=== PATIENT | female | born 1990 | race Caucasian/White ===

== ENCOUNTER 2023-06-22 12:36 | Outpatient (OUT) | payer OTHER, SELFPAY ==
[2023-06-22 13:25] LABS: Basophils Absolute Auto 0.1 10^3/uL (0.0-0.1); Basophils Percent Auto 0.8 % (0.2-2.0); Eosinophils Absolute Auto 0.1 10^3/uL (0.0-0.7); Eosinophils Percent Auto 1.7 % (0.9-7.0); Hematocrit 39.9 % (36.0-48.0); Hemoglobin 13.4 g/dL (12.0-16.0); Immature Granulocytes Abs Auto 0.02 10^3/uL (0.00-0.03); Immature Granulocytes Pct Auto 0.3 % (0.0-0.5); Lymphocytes Absolute Auto 1.8 10^3/uL (1.2-3.8); Lymphocytes Percent Auto 27.9 % (20.5-60.0); Mean Corpuscular HGB Conc 33.6 g/dL (29.9-35.2); Mean Corpuscular Hemoglobin 31.6 pg (26.7-34.0); Mean Corpuscular Volume 94.1 fL (81.0-99.0); Monocytes Absolute Auto 0.7 10^3/uL (0.3-0.8); Neutrophils Absolute Auto 3.9 10^3/uL (1.4-6.5); Neutrophils Percent Auto 59.3 % (43.0-75.0); Platelet Count 292 10^3/uL (150-450); Red Blood Count 4.24 10^6/uL (4.20-5.40); Red Cell Distribution Width 12.5 % (11.0-15.0); White Blood Count 6.6 10^3/uL (4.0-11.0)
[2023-06-22 13:49] LABS: Alanine Aminotransferase 20 U/L (14-59); Albumin Globulin Ratio 1.1; Albumin Level 4.4 g/dL (3.4-5.0); Alkaline Phosphatase 42 U/L (46-116); Anion Gap 13.7; Aspartate Amino Transferase 14 U/L (15-37); BUN Creatinine Ratio 12.2; Bilirubin Total 0.7 mg/dL (0.2-1.0); Calcium 9.5 mg/dL (8.5-10.1); Carbon Dioxide 27.5 mmol/L (21.0-32.0); Chloride 102 mmol/L (98-107); Chol HDL Ratio 2.1; Cholesterol 179 mg/dL (<=200); Estimated GFR (African America >60 (>=60); Estimated GFR (Non-African Ame >60 (>=60); Glucose 104 mg/dL (74-106); HDL Cholesterol 86 mg/dL (40-60); Potassium 4.2 mmol/L (3.5-5.1); Sodium 139 mmol/L (136-145); Total Protein 8.4 g/dL (6.4-8.2); Triglycerides 34 mg/dL (<=150); VLDL CHOLESTEROL 6.8 mg/dL
== END 2023-06-22 12:37 | disposition home or self-care (01) ==
PROVIDERS: PCP Internal Medicine; Visit Provider Internal Medicine
DX: Z00.00 Encounter for general adult medical examination without abnormal findings (principal)
CPT/HCPCS: 36415; 80053; 80061; 84443; 85025

== ENCOUNTER 2023-09-07 05:35 | Emergency (ER) | payer OTHER, SELFPAY ==
[2023-09-07 05:38] VITALS: BP 140/90; PULSE 60; RESP 18; TEMP 36.3; O2SAT 99
--- NOTE | 2023-09-07 05:58 | ED.GENADUL1 ---
HPI - General Adult General Chief complaint: Headache Stated complaint: HEADACHE Time Seen by Provider: 09/07/23 05:43 Source: patient Mode of arrival: walk-in Limitations: no limitations History of Present Illness HPI narrative: Patient with migraine history presents with frontal headache that began around 4am, woke patient from sleeping. She took her triptan but vomited immediately and notes no improvement. She said that the pain is typical of her prior migraines with respect to location and pain level. Associated symptoms include nausea, vomiting, photophobia. She is agitated and becomes increasingly so when asked questions. She has a neurologist through [facility] but could not recall their name. No recent injury to the head or neck. No URI symptoms, fever, rash or neck pain. Related Data Home Medications Medication Instructions Recorded Confirmed dextroamphetamine-amphetamine 10 09/07/23 mg tablet eletriptan 40 mg tablet mg 09/07/23 fluoxetine 10 mg tablet mg 09/07/23 Previous Rx's Medication Instructions Recorded ondansetron 4 mg disintegrating 4 mg PO Q6H PRN migraine or nausea 09/07/23 tablet #14 tabs Allergies Allergy/AdvReac Type Severity Reaction Status Date / Time No Known Drug Allergies Allergy Verified 09/07/23 05:43 PFSH PFS Social History Smoking status: Never smoker Exam Narrative Exam Narrative: Nurses notes and vital signs reviewed and patient is not hypoxic. afebrile General: uncomfortable and agitated. Skin: Warm, dry, no pallor noted. No rash. Head: Normocephalic, atraumatic. Neck: Supple, non-tender. no meningismus Eye: refused to open her eyes Cardiovascular: Regular Rate and Rhythm without murmur, gallop or rub. Respiratory: No accessory muscle use or respiratory distress. Lungs are clear to auscultation, no wheezing, rales or rhonchi Musculoskeletal: normal ROM Neurological: A&O x4. No cranial nerve dysfunction observed. No truncal ataxia. Moves all extremities. Sensation intact. Psychiatric: Cooperative and interactive. Normal mood and affect. Constitutional Vital Signs, click to edit/add: Last Vital Signs Temp 97.4 F L 09/07/23 05:38 Pulse 60 09/07/23 05:38 Resp 18 09/07/23 05:38 BP 140/90 09/07/23 05:38 Pulse Ox 99 09/07/23 05:38 O2 Del Method Room Air 09/07/23 05:38 Course Vital Signs Vital signs: Vital Signs Temperature 97.4 F L 09/07/23 05:38 Pulse Rate 60 09/07/23 05:38 Respiratory Rate 18 09/07/23 05:38 Blood Pressure 140/90 09/07/23 05:38 Pulse Oximetry 99 09/07/23 05:38 Oxygen Delivery Method Room Air 09/07/23 05:38 Temperature 97.4 F L 09/07/23 05:38 Pulse Rate 60 09/07/23 05:38 Respiratory Rate 18 09/07/23 05:38 Blood Pressure 140/90 09/07/23 05:38 Pulse Oximetry 99 09/07/23 05:38 Oxygen Delivery Method Room Air 09/07/23 05:38 Medical Decision Making MDM Narrative Medical decision making narrative: I ordered the emergency Department nurse to establish a peripheral IV access and give the patient a liter of normal saline IV fluid, IV Toradol, IV Zofran and IV Benadryl. On recheck at 635am she told me that her nausea had resolved and her headache had decreased from 8/10 to 3-4/10 and that she was feeling well enough to go home. Patient discharged home with prescription for ODT Zofran. Discharge Plan Discharge Chief Complaint: Headache Clinical Impression: Migraine Patient Disposition: Home, Self-Care Time of Disposition Decision: 06:40 Prescriptions / Home Meds: New ondansetron 4 mg tablet,disintegrating 4 mg PO Q6H PRN (Reason: migraine or nausea) Qty: 14 0RF No Action eletriptan 40 mg tablet dextroamphetamine-amphetamine 10 mg tablet fluoxetine 10 mg tablet Instructions: Migraine Headache (ED) Stand Alone Forms: Portal Instructions Referrals: Jordy Case DO [Primary Care Provider] - 1 week
[2023-09-07] MEDS: 0.9 % SODIUM CHLORIDE 1,000 ML 999 ML IV (06:28)
[2023-09-07] MEDS: DIPHENHYDRAMINE HCL 50 MG/ML (1ML) VIAL 25 MG IV (06:29)
[2023-09-07] MEDS: KETOROLAC TROMETHAMINE 30 MG/ML VIAL IVP (06:29)
[2023-09-07] MEDS: ONDANSETRON PF 4 MG/2 ML VIAL IV (06:29)
[2023-09-07 07:22] VITALS: BP 132/82; PULSE 86; RESP 18; O2SAT 98
== END 2023-09-07 07:42 | disposition home or self-care (01) ==
PROVIDERS: Emergency Provider Emergency Medicine; PCP Internal Medicine
DX: G43.909 Migraine, unspecified, not intractable, without status migrainosus (principal); Z79.899 Other long term (current) drug therapy
CPT/HCPCS: 96361; 96374; 96375; 99284

== ENCOUNTER 2024-01-14 04:38 | Emergency (ER) | payer OTHER, SELFPAY ==
[2024-01-14 04:42] VITALS: BP 138/98; PULSE 74; RESP 20; O2SAT 100
--- NOTE | 2024-01-14 04:45 | ED_ITS ---
HPI - Headache General Chief Complaint: Headache Stated Complaint: HEADACHE Time Seen by Provider: 01/14/24 04:41 History of Present Illness HPI Narrative: Patient with history of migraines presents with pain throughout the head that began a few hours ago. She also has associated nausea and vomiting, photophobia and small amount of loose stools - typical of her prior migraines. She said that she was visiting her boyfriend in [place] and was trying to drive to [place] but stopped at our ED to get treatment. She previously had improvement with toradol, zofran and benadryl when I saw her in August 2023. Related Data Home Medications Medication Instructions Recorded Confirmed dextroamphetamine-amphetamine 10 09/07/23 mg tablet eletriptan 40 mg tablet mg 09/07/23 fluoxetine 10 mg tablet mg 09/07/23 amoxicillin 500 mg capsule mg 01/14/24 Allergies Allergy/AdvReac Type Severity Reaction Status Date / Time No Known Drug Allergies Allergy Verified 09/07/23 05:43 PFSH PFS Social History Smoking status: Never smoker Exam Narrative Exam Narrative: Nurses notes and vital signs reviewed and patient is not hypoxic. afebrile General: uncomfortable. Skin: Warm, dry, no pallor noted. Head: Normocephalic, atraumatic. Neck: No meningismus Eye: Photophobia. Ears, Nose, Mouth, and Throat: Oral mucosa is moist Cardiovascular: Regular Rate and Rhythm without murmur, gallop or rub. Respiratory: No accessory muscle use or respiratory distress. Lungs are clear to auscultation, no wheezing, rales or rhonchi Neurological: A&O x4. No cranial nerve dysfunction observed. No truncal ataxia. Moves all extremities. Sensation intact. Psychiatric: Cooperative and interactive. Normal mood and affect. Constitutional Vital Signs, click to edit/add: Last Vital Signs Pulse 74 01/14/24 04:42 Resp 20 01/14/24 04:42 BP 138/98 H 01/14/24 04:42 Pulse Ox 100 01/14/24 04:42 Course Vital Signs Vital signs: Vital Signs Pulse Rate 74 01/14/24 04:42 Respiratory Rate 20 01/14/24 04:42 Blood Pressure 138/98 H 01/14/24 04:42 Pulse Oximetry 100 01/14/24 04:42 Pulse Rate 74 01/14/24 04:42 Respiratory Rate 20 01/14/24 04:42 Blood Pressure 138/98 H 01/14/24 04:42 Pulse Oximetry 100 01/14/24 04:42 MDM - Headache MDM Narrative Medical decision making narrative: Patient given IM Toradol, IM Benadryl and ODT Zofran. Discharged home with instructions to rest. Work note given Discharge Plan Discharge Stand Alone Forms: Portal Instructions Chief Complaint: Headache Clinical Impression: Migraine Patient Disposition: Home, Self-Care Time of Disposition Decision: 04:53 Prescriptions / Home Meds: No Action eletriptan 40 mg tablet dextroamphetamine-amphetamine 10 mg tablet fluoxetine 10 mg tablet amoxicillin 500 mg capsule Instructions: Migraine Headache (ED) Referrals: Jordy Case DO [Primary Care Provider] - 1 week
--- OUTSIDE RECORDS SUMMARY | 2024-01-14 04:45 | XMS_ITS | CCD ---
Author Name Unknown Address [address] [place] [address] Organization [facility] Care Team Providers Care Heel Nailing Machine Operator Name Role Phone DR JORDY GAMBLE Admitting Unavailable MANPREET, DR CONKLIN Attending Unavailable MANPREET, DR COKNLIN Primary Care Unavailable MANPREET, DR CONKLIN Consulting Unavailable Jordy Gamble Unavailable Amelia Lezama Unavailable JORDY GAMBLE Primary Care Unavailable ZENOBIA WHALEN Attending Unavailab DO Dylan Kelley Attending Provider CAT Murcia Primary Care Provider DO Jordy Gamble Attending Provider [phone] Miriam Mccarty Unavailable BALDOMERO Mccarty Attending Provider NON STAFF Primary Care Unavailable Miriam Mccarty Admitting Unavailable Miriam Mccarty Attending Unavailable Von Multani Admitting Unavailab Von Kelley Attending Unavailab July Roper Primary Care Unavailable Jordy Gamble Admitting Unavailable Jordy Gamble Attending Unavailable Jluy Murcia Primary Care Unavailable Allergies Allergy Classification Reported Allergen(s) Allergy Type Date of Onset Reaction(s) Facility (1 source) Unable to Assess Drug allergy (disorder) 02-28-2023 [facility] Repository Medications Current Medications Medication Drug Class(es) Dates Sig (Normalized) Sig (Original) amphetamine aspartate 2.5 mg / amphetamine sulfate 2.5 mg / dextroamphetamine saccharate 2.5 mg / dextroamphetamine sulfate 2.5 mg oral tablet (14 sources) Central Nervous System Stimulant Start: 08-03-2023 take 1 tablet by mouth every twelve hours Adderall 10 MG 1 tablet Orally Twice a day for 30 days Jul, Active Start: 06-15-2023 [facility] Adderall 7.5 MG 1 tablet Orally Twice a day for 30 days May, Active Start: 05-03-2023 take 1 capsule by [facility] every twenty-four hours Adderall XR 15 MG 1 capsule Orally Once a day for 30 days Apr, Active Start: 04-17-2023 take 1 capsule by mo [facility] every twenty-four hours Adderall XR 15 MG 1 capsule Orally Once a day for 30 days Mar, Active Start: 02-27-2023 take 1 capsule by mo [facility] every twenty-four hours Adderall XR 10 MG 1 capsule Orally Once a day for 30 days February, Active Start: 01-10-2023 take 1 capsule by [facility] every twenty-four hours Adderall XR 10 MG 1 capsule Orally Once a day Dec, Active Start: 12-11-2022 take 1 capsule by [facility] every twenty-four hours Adderall XR 10 MG 1 capsule in the morning Orally Once a day for 30 days Nov, Active FLUoxetine 10 mg oral tablet (3 sources) Serotonin Reuptake Inhibitor Start: 06-15-2023 take 1 tablet by mouth once in the morning FLUoxetine HCl 10 MG 1 tablet Orally q am for 30 days May, Active rizatriptan 10 mg oral tablet (10 sources) Serotonin-1b and Serotonin-1d Receptor Agonist Start: 02-20-2023 take 1 tablet by mouth every twenty-four hours Maxalt 10 MG 1 tablet Orally Once a day for 1 days Jan, Active Completed/Discontinued Medications Medication Drug Class(es) Dates Sig (Normalized) Sig (Original) ciprofloxacin 3 mg/ml ophthalmic solution (7 sources) Quinolone Antimicrobial Start: 3 Ciprofloxacin HCl 0.3 % 2 drops Ophthalmic In right eye every 2 hours while awake x 24 hours then qid for 7 days February, Not-Taking doxycycline hyclate 100 mg oral tablet (7 sources) Tetracycline-class Drug Start: 3 take 1 tablet by mouth every twenty-four hours Doxycycline Hyclate 100 MG 1 tablet Orally Once a day for 7 days February, Not-Taking escitalopram 10 mg oral tablet (11 sources) Serotonin Reuptake Inhibitor Start: 3 take 1 tablet by mouth every twenty-four hours Escitalopram Oxalate 10 MG 1 tablet Orally Once a day Nov, Not-Taking methylPREDNISolone 4 mg oral tablet (11 sources) Corticosteroid Start: 3 methylPREDNISolone 4 MG as directed Orally Once a day for 6 days Nov, Not-Taking Problems Problem Classification Problem Date Documented Date Episodic/Chronic Anxiety disorders (14 sources) Generalized anxiety disorder; Translations: [Generalized anxiety disorder] Chronic Attention-deficit, conduct, and disruptive behavior disorders (20 sources) Attention deficit hyperactivity disorder, predominantly inattentive type; Translations: [Attention-deficit hyperactivity disorder, predominantly inattentive type] Chronic Attention-deficit, conduct, and disruptive behavior disorders (5 sources) Attention-deficit hyperactivity disorder, predominantly inattentive type Chronic Diabetes or abnormal glucose tolerance complicating ; childbirth; or the puerperium (12 sources) History of gestational diabetes mellitus; Translations: [Personal history of gestational diabetes] Episodic Headache; including migraine (16 sources) Migraine with aura; Translations: [Migraine with aura, not intractable, without status migrainosus] Onset: 01-07-2023 Chronic Headache; including migraine (1 source) Headache; including migraine; Translations: [Headache, unspecified] Onset: 02-28-2023 Immunizations and screening for infectious disease (2 sources) Contact with and (suspected) exposure to infections with a predominantly sexual mode of transmission; Translations: [Contact with and (suspected) exposure to infections with a predominantly sexual mode of transmission] Onset: 09-14-2023 Episodic Inflammation; infection of eye (except that caused by tuberculosis or sexually transmitteddisease) (2 sources) Unspecified acute conjunctivitis, right eye Episodic Mood disorders (12 sources) Mild recurrent major depression; Translations: [Major depressive disorder, recurrent, mild] Chronic Nausea and vomiting (2 sources) Nausea with vomiting, unspecified; Translations: [Nausea with vomiting, unspecified] Onset: 01-07-2023 Episodic Other eye disorders (2 sources) Corneal disorder due to contact lens, bilateral Episodic Other upper respiratory infections (3 sources) Acute maxillary sinusitis, unspecified; Translations: [Acute pharyngitis, unspecified] Episodic Thyroid disorders (20 sources) Goiter; Translations: [Iodine-deficiency related diffuse (endemic) goiter] Onset: 03-07-2023 Chronic Viral infection (12 sources) Herpes simplex type 1 infection; Translations: [Herpesviral infection, unspecified] Episodic Results Test Name Value Interpretation Reference Range Facil ity Chlamydia/GC/Trich NAAon Chlamydia Trachomotis, ELINOR Negative Normal Negative [facility] Comment on above: Performed By: #### G CCHLAMTRI #### [facility] , Neisseria Gonorrhoeae, ELINOR Negative Normal Negative [facility] Comment on above: Performed By: #### G CCHLAMTRI #### [facility] , Trichomonas ELINOR Negative Normal Negative [facility] Comment on above: Result Comment: Perf ormed at: =G - [facility] [address] [place] [id number] Regional Coordinator: Yasmin Bartholomew MD, Phone: [phone] PERFORMED BY: [place] [address] PATHOLOGIST MANAGER OF INTERNAL ALVARADO CAT M.D. Performed By: #### G CCHLAMTRI #### [facility] , US thyroidon 03-07-2023 US thyroid [facility] [place] [address] Ultrasound Report Signed Patient: Ivone Nino MR#: [id number] : 1990 Acct:[id number] Age/Sex: 32 / F ADM Date: 03/07/23 Loc: Room: Type: [facility] Attending Dr: Jordy Gamble DO Ordering Provider: Jordy Gamble DO Date of Service: 03/07/23 US/US thyroid: Thyroid nodule Copies to: Jordy Gamble DO THYROID ULTRASOUND COMPARISON: None CLINICAL DATA: History of thyroid nodule. The right thyroid lobe measures 4.6 x 1.7 x 1.8 cm. The left lobe measures 4.0 x 1.1 x 1.6 cm. The isthmus measures 2 - 3 mm. There is normal echogenicity. At the superior pole on the right laterally, there is a tiny hypoechoic nodule measuring 3 x 2 x 3 mm. There is an additional superficial hypoechoic nodular area at the upper pole on that side measuring 5 x 3 x 5 mm. At the midpole on the right there is another hypoechoic nodular area that could be septated and possibly cystic measuring 4 x 3 x 3 mm. A second lateral hypoechoic nodular area is present the midpole measuring 5 x 3 x 4 mm. On the left, no discrete thyroid nodules were measured. US/US thyroid IMPRESSION: TINY RIGHT THYROID NODULES. THERE ARE NO PRIORS TO ASSESS STABILITY. Impression dictated by: Adrianna Chapman M.D.03/07/2023 4:54 PM Dictation Location[facility]: Karen Collier Transcribed By: VIN 03/07/231653 Dictated By: Adrianna Chapman MD 03/07/231650 Signed By: 03/07/231653 [facility] MR head/brain wo/w conon MR head/brain wo/w con [facility] [place] [address] MRI Report Signed Patient: Ivone Nino MR#: [id number] : 1990 Acct:[id number] Age/Sex: 32 / F ADM Date: 02/28/23 Loc: Room: Type: [facility] Attending Dr: Dylan Multani DO Copies to: Von Multani DO Ordering Provider: Von Multani DO Date of Service: 02/28/23 MR/MR head/brain wo/w con: R27.0, R51.9 MRI BRAIN WITHOUT AND WITH INTRAVENOUS CONTRAST CLINICAL DATA: Chronic worsening headaches and ataxia COMPARISON: None Multiecho, multiplanar imaging of the brain was performed before and after intravenous administration of 12 mL of ProHance. The ventricles are normal in size and position. There are no areas of abnormal signal intensity or enhancement within the supra or infratentorial brain. There is no restricted diffusion to suggest a recent ischemic event. No extra-axial collections or mass effect are seen. No midline abnormalities are noted. The imaged paranasal sinuses and mastoid are cells are clear. MR/MR head/brain wo/w con IMPRESSION: NO ACUTE INTRACRANIAL FINDINGS. Impression dictated by: Adrianna Chapman M.D.02/28/2023 5:09 PM Dictation Location: [place] [address] Transcribed By: [facility] 02/28/231708 Dictated By: Adrianna Chapman MD 02/28/231702 Signed By: 02/28/231708 Normal [facility] Quick Strepon 12-23-2022 S. pyogenes Org specific cx Ql (Throat) Negative Located Within [facility] [employer] Other Quick Strep Located Within [facility] [employer] Other CBC AUTO DIFFon 05-31-2022 BASO # 0.0 103/ul Normal 0.0-0.1 [facility] Comment on above: Performed By: #### C BC #### [facility] [address] [place] [address] Dr. Anthony Saldaña Basophils/100 WBC (Bld) 0.7 % Normal 0.2-2.0 [facility] Comment on above: Performed By: #### C BC #### [facility] [address] [place] [address] Dr. Anthony Saldaña EO # 0.2 103/ul Normal 0.0-0.7 [facility] Comment on above: Performed By: #### C BC #### [facility] [address] [place] [address] Dr. Anthony Saldaña Eosinophils/100 WBC (Bld) 2.8 % Normal 0.9-7.0 [facility] Comment on above: Performed By: #### C BC #### [facility] [address] [place] [address] Dr. Anthony Saldaña Erythrocyte distribution width (RBC) [Ratio] 12.2 % Normal 11.0-15.0 [facility] Comment on above: Performed By: #### C BC #### [facility] [address] [place] [address] Dr. Anthony Saldaña Hematocrit (Bld) [Volume fraction] 38.1 % Normal 36.0-48.0 [facility] Comment on above: Performed By: #### C BC #### [facility] [address] [place] [address] Dr. Anthony Saldaña Hemoglobin (Bld) [Mass/Vol] 12.9 g/dL Normal 12.0-16.0 [facility] Comment on above: Performed By: #### C BC #### [facility] [address] [place] [address] Dr. Anthony Saldaña IG # 0.02 10e3/ul Normal 0.00-0.03 [facility] Comment on above: Performed By: #### C BC #### [facility] [address] [place] [address] Dr. Anthony Saldaña IG % 0.4 % Normal 0.0-0.5 [facility] Comment on above: Performed By: #### C BC #### [facility] [address] [place] [address] Dr. Anthony Saldaña LYMPH # 2.1 103/ul Normal 1.2-3.8 [facility] Comment on above: Performed By: #### C BC #### [facility] [address] [place] [address] Dr. Anthony Saldaña Lymphocytes/100 WBC (Bld) 39.6 % Normal 20.5-60.0 [facility] Comment on above: Performed By: #### C BC #### [facility] [address] [place] [address] Dr. Anthony Saldaña MANUAL DIFF REQ NO Normal [facility] Comment on above: Performed By: #### C BC #### [facility] [address] [place] [address] Dr. Anthony Saldaña MCH (RBC) [Entitic mass] 31.6 pg Normal 26.7-34.0 [facility] Comment on above: Performed By: #### C BC #### [facility] [address] [place] [address] Dr. Anthony Saldaña MCHC (RBC) [Mass/Vol] 33.9 g/dL Normal 29.9-35.2 [facility] Comment on above: Performed By: #### C BC #### [facility] [address] [place] [address] Dr. Anthony Saldaña MCV (RBC) [Entitic vol] 93.4 fL Normal 81.0-99.0 [facility] Comment on above: Performed By: #### C BC #### [facility] [address] [place] [address] Dr. Anthony Saldaña MONO # 0.5 103/ul Normal 0.3-0.8 [facility] Comment on above: Performed By: #### C BC #### [facility] [address] [place] [address] Dr. Anthony Saldaña Monocytes/100 WBC (Bld) 9.5 % Normal 1.7-12.0 [facility] Comment on above: Performed By: #### C BC #### [facility] [address] [place] [address] Dr. Anthony Saldaña NEUT # 2.5 103/ul Normal 1.4-6.5 [facility] Comment on above: Performed By: #### C BC #### [facility] [address] [place] [address] Dr. Anthony Saldaña Neutrophils/100 WBC (Bld) 47.0 % Normal 43.0-75.0 [facility] Comment on above: Performed By: #### C BC #### [facility] [address] [place] [address] Dr. Anthony Saldaña Platelet mean volume (Bld) [Entitic vol] 8.6 fL Critically low 9.5-13.5 [facility] Comment on above: Performed By: #### C BC #### [facility] [address] [place] [address] Dr. Anthony Saldaña PLT 270 103/ul Normal 150-450 [facility] Comment on above: Performed By: #### C BC #### [facility] [address] [place] [address] Dr. Anthony Saldaña RBC 4.08 106/ul Critically low 4.20-5.40 [facility] Comment on above: Performed By: #### C BC #### [facility] [address] [place] [address] Dr. Anthony Saldaña WBC 5.4 103/ul Normal 4.0-11.0 [facility] Comment on above: Performed By: #### C BC #### [facility] [address] [address] [address] Anthony Saldaña PROF 14(COMP METB)on 022 Albumin [Mass/Vol] 4.3 g/dL Normal 3.4-5.0 [facility] Comment on above: Performed By: #### C MP, TSH #### [facility] [address] [address] [address] Anthony Saldaña Albumin/Globulin [Mass ratio] 1.2 {ratio} Normal [facility] Comment on above: Performed By: #### C MP, TSH #### [facility] [address] [place] [address] Dr. Anthony Saldaña ALP [Catalytic activity/Vol] 41 U/L Critically low 46-116 [facility] Comment on above: Performed By: #### C MP, TSH #### [facility] [address] [place] [address] Dr. Anthony Saldaña ALT [Catalytic activity/Vol] 17 U/L Normal 14-59 [facility] Comment on above: Performed By: #### C MP, TSH #### [facility] [address] [place] [address] Dr. Anthony Saldaña Anion gap [Moles/Vol] 11.7 mmol/L Normal [facility] Comment on above: Performed By: #### C MP, TSH #### [facility] [address] [place] [address] Dr. Anthony Saldaña AST [Catalytic activity/Vol] 15 U/L Normal 15-37 [facility] Comment on above: Performed By: #### C MP, TSH #### [facility] [address] [place] [address] Dr. Anthony Saldaña Bilirubin [Mass/Vol] 0.5 mg/dL Normal 0.2-1.0 [facility] Comment on above: Performed By: #### C MP, TSH #### [facility] [address] [place] [address] Dr. Anthony Saldaña Calcium [Mass/Vol] 9.2 mg/dL Normal 8.5-10.1 [facility] Comment on above: Performed By: #### C MP, TSH #### [facility] [address] [place] [address] Dr. Anthony Saldaña Chloride [Moles/Vol] 103 mmol/L Normal 98-107 [facility] Comment on above: Performed By: #### C MP, TSH #### [facility] [address] [place] [address] Dr. Anthony Saldaña CO2 [Moles/Vol] 28.5 mmol/L Normal 21.0-32.0 [facility] Comment on above: Performed By: #### C MP, TSH #### [facility] [address] [place] [address] Dr. Anthony Saldaña Creatinine [Mass/Vol] 0.81 mg/dL Normal 0.55-1.02 [facility] Comment on above: Performed By: #### C MP, TSH #### [facility] [address] [place] [address] Dr. Anthony Saldaña EGFR-AF BHUTANESE >60 Normal >=60 [facility] Comment on above: Performed By: #### C MP, TSH #### [facility] [address] [place] [address] Dr. Anthony Saldaña EGFR-NON AF BHUTANESE >60 Normal >=60 [facility] Comment on above: Performed By: #### C MP, TSH #### [facility] [address] [place] [address] Dr. Anthony Saldaña Globulin (S) [Mass/Vol] 3.7 g/dL Normal [facility] Comment on above: Performed By: #### C MP, TSH #### [facility] [address] [address] [address] Anthony Saldaña Glucose [Mass/Vol] 92 mg/dL Normal 74-106 [facility] Comment on above: Performed By: #### C MP, TSH #### [facility] [address] [place] [address] Dr. Anthony Saldaña Potassium [Moles/Vol] 4.2 mmol/L Normal 3.5-5.1 [facility] Comment on above: Performed By: #### C MP, TSH #### [facility] [address] [place] [address] Dr. Anthony Saldaña Protein [Mass/Vol] 8.0 g/dL Normal 6.4-8.2 [facility] Comment on above: Performed By: #### C MP, TSH #### [facility] [address] [place] [address] Dr. Anthony Saldaña Sodium [Moles/Vol] 139 mmol/L Normal 136-145 [facility] Comment on above: Performed By: #### C MP, TSH #### [facility] [address] [place] [address] Dr. Anthony Saldaña Urea nitrogen [Mass/Vol] 9.0 mg/dL Normal 7.0-18.0 [facility] Comment on above: Performed By: #### C MP, TSH #### [facility] [address] [place] [address] Dr. Anthony Saldaña Urea nitrogen/Creatinin e [Mass ratio] 11.1 mg/mg Normal [facility] Comment on above: Performed By: #### C MP, TSH #### [facility] [address] [place] [address] Dr. Anthony Saldaña TSHon 05-31-2022 TSH 2.103 uIU/mL Normal 0.358-3.740 [facility] Comment on above: Performed By: #### C MP, TSH #### [facility] [address] [place] [address] Dr. Anthony Saldaña Vital Signs Date Time Vital Sign Value Performing Clinician Facility 09-14-2023 15:15-0500 Body height 160.02 cm Miriam Mccarty Other [facility] Other 09-14-2023 15:15-0500 Body mass index (BMI) [Ratio] 25.9 kg/m2 Miriam Mccarty Other [facility] Other 09-14-2023 15:15-0500 Body temperature 98.1 [degF] Miriam Mccarty Other [facility] Other 09-14-2023 15:15-0500 Body weight 66.32 kg Miriam Mccarty Other [facility] Other 09-14-2023 15:15-0500 Diastolic blood pressure 89 mm[Hg] Miriam Mccarty Other [facility] Other 09-14-2023 15:15-0500 Respiratory rate 16 /min Miriam Mccarty Other [facility] Other 09-14-2023 15:15-0500 SaO2% (BldA) [Mass fraction] 99 % Miriam Lul Other [facility] Other 09-14-2023 15:15-0500 Systolic blood pressure 120 mm[Hg] Miriam Mccarty Other [facility] Other 03-01-2023 10:30-0400 Body height 160.02 cm Jordy Ball Other [facility] Other 03-01-2023 10:30-0400 Body mass index (BMI) [Ratio] 25.12 kg/m2 Jordy Ball Other [facility] Other 03-01-2023 10:30-0400 Body weight 64.32 kg Jordy Ball Other [facility] Other 03-01-2023 10:30-0400 Diastolic blood pressure 68 mm[Hg] Jordy Ball Other [facility] Other 03-01-2023 10:30-0400 Respiratory rate 12 /min Jordy Ball Other [facility] Other 03-01-2023 10:30-0400 Systolic blood pressure 100 mm[Hg] Jordy Ball Other [facility] Other 02-20-2023 16:00-0400 Body height 160.02 cm Jordy Ball Other [facility] Other 02-20-2023 16:00-0400 Body mass index (BMI) [Ratio] 24.62 kg/m2 Jordy Ball Other [facility] Other 02-20-2023 16:00-0400 Body weight 63.05 kg Jordy Ball Other [facility] Other 02-20-2023 16:00-0400 Diastolic blood pressure 76 mm[Hg] Jordy Ball Other [facility] Other 02-20-2023 16:00-0400 Respiratory rate 12 /min Jordy Ball Other [facility] Other 02-20-2023 16:00-0400 Systolic blood pressure 109 mm[Hg] Jordy Ball Other [facility] Other 12-23-2022 12:30-0500 Body height 160.02 cm Amelia Teja Other [facility] Other 12-23-2022 12:30-0500 Body mass index (BMI) [Ratio] 23.56 kg/m2 Amelia Teja Other [facility] Other 12-23-2022 12:30-0500 Body temperature 98.9 [degF] Amelia Teja Other [facility] Other 12-23-2022 12:30-0500 Body weight 60.33 kg Amelia Lezama Other [facility] Other 12-23-2022 12:30-0500 Respiratory rate 18 /min Amelia Lezama Other [facility] Other 12-23-2022 12:30-0500 SaO2% (BldA) [Mass fraction] 97 % Amelia Lezama Other [facility] Other Encounters Encounter Date Encounter Type Care Provider Facility Start: 09-14-2023 End: 09-14-2023 Departed Referred [employer] Miriam Mccarty Work Phone: [place] [facility] [place] Work Phone: Start: 09-14-2023 End: 09-14-2023 ambulatory NON STAFF [facility] Work Phone: Start: 09-14-2023 Office outpatient visit 15 minutes Miriam Mccarty [facility] Start: 08-03-2023 End: 08-03-2023 ambulatory Jordy Manpreet Other [email or web address] Other Start: 08-03-2023 Encounter for genera l adult medical examination without abnormal findings Jordy Manpreet [facility] Start: 08-03-2023 Telephone encounter Jordy Ball [facility] Start: 06-25-2023 End: 06-25-2023 ambulatory Jordy Ball Other [email or web address] Other Start: 06-25-2023 Telephone encounter Jordy Ball [facility] Start: 05-03-2023 End: 05-03-2023 ambulatory Jordy Ball Other [email or web address] Other Start: 05-03-2023 Telephone encounter Jordy Ball [facility] Start: 04-17-2023 End: 04-17-2023 ambulatory Jordy Ball Other [email or web address] Other Start: 04-17-2023 Telephone encounter [facility] Start: 03-08-2023 End: 03-08-2023 ambulatory Jordy Gamble Other [email or web address] Other Start: 03-08-2023 Telephone encounter [facility] Start: 03-07-2023 End: 03-07-2023 ambulatory Jordy Gamble Facility:[facility] Start: 03-07-2023 End: 03-07-2023 ambulatory RESPIRATORY PHYSICIAN-C July L Case Work Phone: [facility] Work Phone: Start: 03-07-2023 End: 03-07-2023 Patient encounter procedure RESPIRATORY PHYSICIAN-C July Case Work Phone: [facility] [place] Work Phone: Start: 03-01-2023 End: 03-01-2023 ambulatory Jordy Gamble Other [email or web address] Other Start: 03-01-2023 Office outpatient visit 15 minutes [facility] Start: 02-28-2023 End: 02-28-2023 ambulatory Von Multani Facility:[facility] Start: 02-28-2023 End: 02-28-2023 ambulatory RESPIRATORY PHYSICIAN-C July L Case Work Phone: [facility] Work Phone: Start: 02-28-2023 End: 02-28-2023 Patient encounter procedure RESPIRATORY PHYSICIAN-C July Case Work Phone: [facility] [place] Work Phone: Start: 02-27-2023 End: 02-27-2023 ambulatory Jordy Gamble Other [email or web address] Other Start: 02-27-2023 Telephone encounter [facility] Start: 02-20-2023 End: 02-20-2023 ambulatory Jordy Gamble Other [email or web address] Other Start: 02-20-2023 Office outpatient visit 15 minutes Jordy Gamble [facility] Start: 01-07-2023 End: 01-07-2023 Emergency department patient visit JORDY Vimal GAMBLE [facility] Start: 12-23-2022 End: 12-23-2022 ambulatory Amelia Teja Other [email or web address] Other Start: 12-23-2022 Office outpatient visit 25 minutes Amelia Lezama [facility] [place] Start: 12-11-2022 End: 12-11-2022 ambulatory Jordy Gamlbe Other [email or web address] Other Start: 12-11-2022 Office outpatient visit 15 minutes Jordy Gamble [facility] Start: 06-04-2022 Encounter for genera l adult medical examination without abnormal findings DR JORDY GAMBLE [facility] Start: 05-31-2022 End: 06-01-[address] JORDY GAMBLE Facility:[facility] Start: 05-31-2022 End: 06-01-2022 Encounter for general adult medical examination without abnormal findings DR JORDY GAMBLE Facility:[facility] Procedures Date Procedure Procedure Detail Performing Clinician Start: 03-07-2023 US scan of thyroid RESPIRATORY PHYSICIAN-C July Case Work Phone: Start: 02-28-2023 MRI of head RESPIRATORY PHYSICIAN-C Noemia ndra Case Work Phone: Plan of Treatment Date Care Activity Detail Author Start: 09-14-2023 [facility] Immunizations Immunization Date Immunization Notes Care Provider Fa [place] 08-10-2022 influenza virus vaccine, split virus (incl. purified surface antigen) Jordy Gamble Other [employer] Other 08-10-2021 influenza virus vaccine, split virus (incl. purified surface antigen) Jordy Gamble Other [employer] Other Payers Date Payer Category Payer Self-pay 1990 Unknown [id number] 1990 Unknown [id number] 1959 Unknown [id number] Unknown Regular Insurance [id number] Unknown [id number] [id number] [id number] Unknown [id number] Unknown [id number] [id number] Social History Date Type Detail Facility Sex Assigned At [email or web address] Other Start: 1990 Sex Assigned At Female [facility] Clinical Notes 12-11-2022 to 09-14-2023 Note Date & Type Note Facility 09-14-2023 Evaluation note Encounter Date Diagnosis Assessment Notes Aug, Exposure to sexually transmitted disease (STD) (ICD-10 - Z20.2) Discussed diagnosis and dipstick findings with patient. Will hold off on treatment at this time. Advised patient culture was sent today and we will call with her results in 2-5 days. We will test for gonorrhea, chlamydia, and trich off urine sample. Patient declines prophylactic treatment at this time. At time of results, treatment plan many change. Patient instructed to push fluids. Pain from sexual intercourse at this time. Patient symptoms should improve in the next 48 hours, if symptoms persist follow up with PCP or [facility]ographer [facility]. Immediate eval by ER if back or flank pain, fever, chills, N/V, or any other concerning symptoms arise. Patient verbalizes understanding and is agreeable to treatment plan [employer] Other 10-06-2023 Evaluation note* Encounter Date Diagnosis Assessment Notes Treatment Notes Treatment Clinical Notes Jul, Wellness examination (ICD-10 - Z00.00) [facility] Other 07-06-2023 Evaluation note* Encounter Date Diagnosis Assessment Notes Treatment Notes Treatment Clinical Notes Apr, Attention deficit hyperactivity disorder (ADHD), predominantly inattentive type (ICD-10 - F90.0) [employer] Other 06-20-2023 Evaluation note* Encounter Date Diagnosis Assessment Notes Treatment Notes Treatment Clinical Notes Mar, Attention deficit hyperactivity disorder (ADHD), predominantly inattentive type (ICD-10 - F90.0) [employer] Other 05-04-2023 Evaluation note* Encounter Date Diagnosis Assessment Notes Treatment Notes Treatment Clinical Notes February, Acute bacterial conjunctivitis of right eye (ICD-10 - H10.31) Warm compresses, artificial tears. Wash hands frequently February, Contact lens overwea r of both eyes (ICD-10 - H18.823) Wear glasses until infection clears [employer] Other 05-02-2023 Evaluation note* Encounter Date Diagnosis Assessment Notes Treatment Notes Treatment Clinical Notes February, Attention deficit hyperactivity disorder (ADHD), predominantly inattentive type (ICD-10 - F90.0) [employer] Other 04-25-2023 Evaluation note* Encounter Date Diagnosis Assessment Notes Treatment Notes Treatment Clinical Notes Jan, Thyroid nodule (ICD-10 - E04.1) < 10mm two years ago. Suggest repeating thyroid US to document stability Jan, Migraine with aura and without status migrainosus, not intractable (ICD-10 - G43.109) Handouts for migraine triggers given to patient Jan, Attention deficit hyperactivity disorder (ADHD), predominantly inattentive type (ICD-10 - F90.0) Stable, tolerating medication. Jan, SOURAV (generalized anxiety disorder) (ICD-10 - F41.1) Healthy diet, exercise, keep active [employer] Other 02-25-2023 Evaluation note* Encounter Date Diagnosis Assessment Notes Treatment Notes Treatment Clinical Notes Nov, Sore throat (ICD-10 - J02.9) Nov, Laryngitis (ICD-10 - J04.0) Take medication as directed. Use saline nasal spray may help with symptom relief. OTC medications such as Zyrtec, Alicia or Claritin can help with symptoms during the peak of allergy season. Follow up with primary care provider if symptoms persist as a therapy plan may need to be made. [employer] Other 02-13-2023 Evaluation note* Encounter Date Diagnosis Assessment Notes Treatment Notes Treatment Clinical Notes Nov, Acute non-recurrent maxillary sinusitis (ICD-10 - J01.00) Instructed to use Robitussin or Mucinex for cough, saline or Flonase NS for congestion, Tylenol for pain and fever. Nov, Migraine with aura and without status migrainosus, not intractable (ICD-10 - G43.109) Healthy diet, exercise and proper sleep routine Nov, Attention deficit hyperactivity disorder (ADHD), predominantly inattentive type (ICD-10 - F90.0) f/u Psych, restarted Adderall XL Nov, SOURAV (generalized anxiety disorder) (ICD-10 - F41.1) Helathy diet and exercise w/ proper sleep routine [employer] Other Evaluation noteNo assessment information available [facility] Work Phone: Evaluation noteNo InformationNort [employer] Other History general Narrative - Reported* Type Description Date Medical History SOURAV (generalized anxiety disorde r) Medical History Thyroid nodule Medical History Thyromegaly Medical History History of gestational diabetes Medical History Depression, major, recurrent, mi ld Medical History Herpes simplex type 1 infection Medical History ADD (attention deficit disorder) without hyperactivity Medical History Migraine with aura a nd without status migrainosus, not intractable Surgical History LASER SURGERY 2013 Hospitalization History SEE SURGICAL HX [facility] Other Summary Purpose Family History No Family History Records FoundNo Family History Records FoundNo Family History Records Found Advance Directives No Advanced Directives Records Found Advance Directive Response Recorded Date/ Time Advance Directives No February 20, 023 10:42am Advance Directive Response Recorded Date/ Time Advance Directives No February 20, 023 9:42am Chief Complaint and Reason for Visit Chief Complaint R27.0 R51.9 Chief Complaint R27.0 R51.9 nodule Additional Source Comments INFORMATION SOURCE (unrecogn ized section and content) DATE CREATED AUTHOR 06/04/2022 [facility] DATE CREATED AUTHOR AUTHOR'S ORGANIZ ATION 01/13/2023 [facility] DATE CREATED AUTHOR AUTHOR'S ORGANIZ ATION 09/25/2023 [facility] REASON FOR VISIT (unrecogniz ed section and content) [id number], ROSARIO ESTIONMigrainesRefillpink eye and swelled eyepink eye and swelled eyeU/S ResultsrefillRe-Send AdderallLab ResultsmedicationSTD TESTING Care Teams (unrecognized sec tion and content) Team Status: Active Member Role Status Dates July Murcia , RESPIRATORY PHYSICIAN-C Primary Care Provider Active Team Status: Inactive Member Role Status Dates Dylan Multani , Attending Provider Active July Murcia , RESPIRATORY PHYSICIAN-C Primary Care Provider Active Team Status: Inactive Member Role Status Dates July Murcia , RESPIRATORY PHYSICIAN-C Primary Care Provider Active Jordy Gamble DO Attending Provider Active Team Status: Inactive Member Role Status Dates Miriam Mccarty APRN Attending Provider Active Goals (unrecognized section and content) Goals may be documented in a n alternate section FOR RECORDS PERTAINING TO PATIENTS WHO ARE OR HAVE BEEN ENROLLED IN A CHEMICAL DEPENDENCY/SUBSTANCEABUSE PROGRAM, SOME INFORMATION MAY BE OMITTED. This clinical summary was aggregated from multiple sources. Caution should be exercised in using it in the provision of clinical care. This summary normalizes information from multiple sources, and as a consequence, information in this document may materially change the coding, format and clinical context of patient data. In addition, data may be omitted in some cases. CLINICAL DECISIONS SHOULD BE BASED ON THE PRIMARY CLINICAL RECORDS. [employer] provides no warranty or guarantee of the accuracy or completeness of information in this document.
[2024-01-14] MEDS: KETOROLAC TROMETHAMINE 60 MG/2 ML VIAL IM (04:57)
[2024-01-14] MEDS: DIPHENHYDRAMINE HCL 50 MG/ML (1ML) VIAL 25 MG IM (04:57)
[2024-01-14] MEDS: ONDANSETRON 4 MG RAPDIS TABLET SL (04:58)
== END 2024-01-14 05:52 | disposition home or self-care (01) ==
PROVIDERS: Emergency Provider Emergency Medicine; PCP Internal Medicine
DX: G43.909 Migraine, unspecified, not intractable, without status migrainosus (principal)
CPT/HCPCS: 96372; 99284

== ENCOUNTER 2024-06-20 10:04 | Outpatient (OUT) | payer OTHER, SELFPAY ==
[2024-06-20 10:26] LABS: Basophils Absolute Auto 0.1 10^3/uL (0.0-0.1); Basophils Percent Auto 0.9 % (0.2-2.0); Eosinophils Absolute Auto 0.1 10^3/uL (0.0-0.7); Eosinophils Percent Auto 2.4 % (0.9-7.0); Immature Granulocytes Abs Auto 0.02 10^3/uL (0.00-0.03); Immature Granulocytes Pct Auto 0.3 % (0.0-0.5); Lymphocytes Absolute Auto 1.7 10^3/uL (1.2-3.8); Lymphocytes Percent Auto 28.9 % (20.5-60.0); Mean Corpuscular HGB Conc 33.3 g/dL (29.9-35.2); Mean Corpuscular Hemoglobin 31.7 pg (26.7-34.0); Mean Corpuscular Volume 95.1 fL (81.0-99.0); Mean Platelet Volume 8.9 fL (9.5-13.5); Monocytes Absolute Auto 0.6 10^3/uL (0.3-0.8); Monocytes Percent Auto 9.5 % (1.7-12.0); Neutrophils Absolute Auto 3.3 10^3/uL (1.4-6.5); Platelet Count 289 10^3/uL (150-450); White Blood Count 5.8 10^3/uL (4.0-11.0)
--- OUTSIDE RECORDS SUMMARY | 2024-06-20 10:26 | XMS_ITS | CCD ---
Author Organization [facility] Care Team Providers Care Finishing Powder Press Operator Name Role Phone DR JORDY CASE Admitting Unavailable TYE, DR CONKLIN Attending Unavailable TYE, DR CONKLIN Primary Care Unavailable TYE, DR CONKLIN Consulting Unavailable Jordy Case Unavailable Amelia Lezama Unavailable JORDY CASE Primary Care Unavailable ZENOBIA WHALEN Attending Unavailab DO Dylan Kelley Attending Provider [phone] CAT Murcia Primary Care Provider DO Jordy Case Attending Provider Miriam Mccarty Unavailable BALDOMERO Mccarty Attending Provider [phone] NON STAFF Primary Care Unavailable Miriam Mccarty Admitting Unavailable Miriam Mccarty Attending Unavailable Von Multani Admitting Unavailab Von Kelley Attending Unavailab July Roper Primary Care Unavailable Jordy Case Admitting Unavailable Jordy Case Attending Unavailable July Murcia Primary Care Unavailable SHAW CORONA Attending Unavailable INEZ ALCOCER Referring Unavailable SHAW CORONA Attending Unavailable INEZ ALCOCER Referring Unavailable FARA FORD Attending Unavailable INEZ ALCOCER Referring Unavailable JNUITO BLANK Attending Unavailable INEZ ALCOCER Referring Unavailable SHAW CORONA Attending Unavailable INEZ ALCOCER Referring Unavailable SHAW CORONA Attending Unavailable INEZ ALCOCER Referring Unavailable Allergies Allergy Classification Reported Allergen(s) Allergy Type Date of Onset Reaction(s) Facility (1 source) Unable to Assess Drug allergy (disorder) 02-28-2023 [facility] Repository Medications Current Medications Medication Drug Class(es) [...] Active Start: 06-15-2023 take 1 tablet by [facility] every twelve hours Adderall 7.5 MG 1 tablet Orally Twice a day for 30 days May, Active Start: 05-03-2023 take 1 capsule by [facility] every twenty-four hours Adderall XR 15 MG 1 capsule Orally Once a day for 30 days Apr, Active Start: 04-17-2023 take 1 capsule by [facility] every twenty-four hours Adderall XR 15 MG 1 capsule Orally Once a day for 30 days Mar, Active Start: 02-27-2023 take 1 capsule by [facility] every twenty-four hours Adderall XR 10 MG 1 capsule Orally Once a day for 30 days February, Active Start: 01-10-2023 take 1 capsule by [facility] every twenty-four hours Adderall XR 10 MG 1 capsule Orally Once a day Dec, Active Start: 12-11-2022 take 1 capsule by [facility] every twenty-four hours Adderall XR 10 MG [...] ophthalmic solution (7 sources) Quinolone Antimicrobial Start: Ciprofloxacin HCl 0.3 % 2 drops Ophthalmic [...] NAAon Chlamydia Trachomotis, ELINOR Negative Normal Negative [facility] Comment on above: Performed By: #### G CCHLAMTRI #### [facility] , Neisseria Gonorrhoeae, ELINOR Negative Normal Negative [facility] Comment on above: Performed By: #### G CCHLAMTRI #### [facility] , Trichomonas ELINOR Negative Normal Negative [facility] Comment on above: Result Comment: Perf ormed at: =G - [facility] [address] [id number] Geological Aide: Yasmin Bartholomew MD, Phone: [phone] PERFORMED BY: [place] [address] PATHOLOGIST ACT ENGLISH TUTOR ALVARADO CAT M.D. Performed By: #### G CCHLAMTRI #### [facility] , US thyroidon 03-07-2023 US thyroid [facility] [place] [address] Ultrasound Report Signed Patient: Phyllis Ventura MR#: [id number] : 1990 Acct:[id number] Age/Sex: 32 / F ADM Date: 03/07/23 Loc: Room: Type: [facility] Attending Dr: Jordy Case DO Ordering Provider: Jordy Case DO Date of Service: 03/07/23 US/US thyroid: Thyroid nodule Copies to: Jordy Case DO THYROID ULTRASOUND COMPARISON: None CLINICAL DATA: [...] Adrianna Chapman M.D.03/07/2023 4:54 PM Dictation Location: [place] [address] Tech: Karen Amira Transcribed By: VIN 03/07/231653 Dictated By: Adrianna Chapman MD 03/07/231650 Signed By: 03/07/231653 [facility] MR head/brain wo/w chris MR head/brain wo/w con [facility] [place] [address] MRI Report Signed Patient: Phyllis Ventura MR#: [id number] : 1990 Acct:[id number] Age/Sex: 32 / F ADM Date: 02/28/23 Loc: Room: Type: [facility] Attending Dr: Dylan Multani DO Copies to: [...] Adrianna Chapman M.D.02/28/2023 5:09 PM Dictation Location: [place] [address] Transcribed By: [facility] 02/28/231708 Dictated By: Adrianna Chapman MD 02/28/231702 Signed By: 02/28/231708 Normal [facility] Quick Strepon 12-23-2022 S. pyogenes Org specific cx Ql (Throat) Negative [facility] Other Quick Strep [facility] Other CBC AUTO DIFFon 05-31-2022 BASO # 0.0 103/ul Normal 0.0-0.1 [facility] Comment on above: Performed By: #### C BC #### [facility] [address] [place] [address] Dr. Anthony Saldaña Basophils/100 WBC (Bld) 0.7 % Normal 0.2-2.0 [facility] Comment on above: Performed By: #### C BC #### [facility] [address] [place] [address] Dr. Anthony Saldaña EO # 0.2 103/ul Normal 0.0-0.7 [facility] Comment on above: Performed By: #### C BC #### [facility] [address] [place] [address] Dr. Anthony Saldaña Eosinophils/100 WBC (Bld) 2.8 % Normal 0.9-7.0 [facility] Comment on above: Performed By: #### C BC #### [facility] [address] [place] [address] Dr. Anthony Saldaña Erythrocyte distribution width (RBC) [Ratio] 12.2 % Normal 11.0-15.0 [facility] Comment on above: Performed By: #### C BC #### [facility] [address] [place] [address] Dr. Anthony Saldaña Hematocrit (Bld) [Volume fraction] 38.1 % Normal 36.0-48.0 [facility] Comment on above: Performed By: #### C BC #### [facility] [address] [place] [address] Dr. Anthony Saldaña Hemoglobin (Bld) [Mass/Vol] 12.9 g/dL Normal 12.0-16.0 [facility] Comment on above: Performed By: #### C BC #### [facility] [address] [place] [address] Dr. Anthony Saldaña IG # 0.02 10e3/ul Normal 0.00-0.03 [facility] Comment on above: Performed By: #### C BC #### [facility] [address] [place] [address] Dr. Anthony Saldaña IG % 0.4 % Normal 0.0-0.5 [facility] Comment on above: Performed By: #### C BC #### [facility] [address] [place] [address] Dr. Anthony Saldaña LYMPH # 2.1 103/ul Normal 1.2-3.8 [facility] Comment on above: Performed By: #### C BC #### [facility] [address] [place] [address] Dr. Anthony Saldaña Lymphocytes/100 WBC (Bld) 39.6 % Normal 20.5-60.0 [facility] Comment on above: Performed By: #### C BC #### [facility] [address] [place] [address] Dr. Anthony Saldaña MANUAL DIFF REQ NO Normal [facility] Comment on above: Performed By: #### C BC #### [facility] [address] [place] [address] Dr. Anthony Saldaña MCH (RBC) [Entitic mass] 31.6 pg Normal 26.7-34.0 [facility] Comment on above: Performed By: #### C BC #### [facility] [address] [place], [place] [id number] Dr. Anthony Saldaña MCHC (RBC) [Mass/Vol] 33.9 g/dL Normal 29.9-35.2 [facility] Comment on above: Performed By: #### C BC #### [facility] [address] [place] [address] Dr. Anthony Saldaña MCV (RBC) [Entitic vol] 93.4 fL Normal 81.0-99.0 [facility] Comment on above: Performed By: #### C BC #### [facility] [address] [place] [address] Dr. Anthony Saldaña MONO # 0.5 103/ul Normal 0.3-0.8 [facility] Comment on above: Performed By: #### C BC #### [facility] [address] [place] [address] Dr. Anthony Saldaña Monocytes/100 WBC (Bld) 9.5 % Normal 1.7-12.0 [facility] Comment on above: Performed By: #### C BC #### [facility] [address] [place] [address] Dr. Anthony Saldaña NEUT # 2.5 103/ul Normal 1.4-6.5 [facility] Comment on above: Performed By: #### C BC #### [facility] [address] [place] [address] Dr. Anthony Saldaña Neutrophils/100 WBC (Bld) 47.0 % Normal 43.0-75.0 [facility] Comment on above: Performed By: #### C BC #### [facility] [address] [place] [address] Dr. Anthony Saldaña Platelet mean volume (Bld) [Entitic vol] 8.6 fL Critically low 9.5-13.5 [facility] Comment on above: Performed By: #### C BC #### [facility] [address] [place] [address] Dr. Anthony Saldaña PLT 270 103/ul Normal 150-450 [facility] Comment on above: Performed By: #### C BC #### [facility] [address] [place] [address] Dr. Anthony Saldaña RBC 4.08 106/ul Critically low 4.20-5.40 [facility] Comment on above: Performed By: #### C BC #### [facility] [address] [place] [address] Dr. Anthony Saldaña WBC 5.4 103/ul Normal 4.0-11.0 [facility] Comment on above: Performed By: #### C BC #### [facility] [address] [place] [address] Dr. Anthony Saldaña PROF 14(COMP METB)on 022 Albumin [Mass/Vol] 4.3 g/dL Normal 3.4-5.0 [facility] Comment on above: Performed By: #### C MP, TSH #### [facility] [address] [place] [address] Dr. Anthony Saldaña Albumin/Globulin [Mass ratio] 1.2 {ratio} Normal [facility] Comment on above: Performed By: #### C MP, TSH #### [facility] [address] [place] [address] Dr. Anthony Saldaña ALP [Catalytic activity/Vol] 41 U/L Critically low 46-116 [facility] Comment on above: Performed By: #### C MP, TSH #### [facility] [address] [place] [address] Dr. Anthony Saldaña ALT [Catalytic activity/Vol] 17 U/L Normal 14-59 [facility] Comment on above: Performed By: #### C MP, TSH #### [facility] [address] [place] [address] Dr. Anthony Saldaña Anion gap [Moles/Vol] 11.7 mmol/L Normal [facility] Comment on above: Performed By: #### C MP, TSH #### [facility] [address] [place] [address] Dr. Anthony Saldaña AST [Catalytic activity/Vol] 15 U/L Normal 15-37 [facility] Comment on above: Performed By: #### C MP, TSH #### [facility] [address] [place] [address] Dr. Anthony Saldaña Bilirubin [Mass/Vol] 0.5 mg/dL Normal 0.2-1.0 [facility] Comment on above: Performed By: #### C MP, TSH #### [facility] [address] [place] [address] Dr. Anthony Saldaña Calcium [Mass/Vol] 9.2 mg/dL Normal 8.5-10.1 [facility] Comment on above: Performed By: #### C MP, TSH #### [facility] [address] [place] [address] Dr. Anthony Saldaña Chloride [Moles/Vol] 103 mmol/L Normal 98-107 [facility] Comment on above: Performed By: #### C MP, TSH #### [facility] [address] [place] [address] Dr. Anthony Saldaña CO2 [Moles/Vol] 28.5 mmol/L Normal 21.0-32.0 [facility] Comment on above: Performed By: #### C MP, TSH #### [facility] [address] [place] [address] Dr. Anthony Saldaña Creatinine [Mass/Vol] 0.81 mg/dL Normal 0.55-1.02 [facility] Comment on above: Performed By: #### C MP, TSH #### [facility] [address] [place] [address] Dr. Anthony Saldaña EGFR-AF NAURUAN >60 Normal >=60 [facility] Comment on above: Performed By: #### C MP, TSH #### [facility] [address] [place] [address] Dr. Anthony Saldaña EGFR-NON AF NAURUAN >60 Normal >=60 [facility] Comment on above: Performed By: #### C MP, TSH #### [facility] [address] [place] [address] Dr. Anthony Saldaña Globulin (S) [Mass/Vol] 3.7 g/dL Normal [facility] Comment on above: Performed By: #### C MP, TSH #### [facility] [address] [place] [address] Dr. Anthony Saldaña Glucose [Mass/Vol] 92 mg/dL Normal 74-106 [facility] Comment on above: Performed By: #### C MP, TSH #### [facility] [address] [place] [address] Dr. Anthony Saldaña Potassium [Moles/Vol] 4.2 mmol/L Normal 3.5-5.1 [facility] Comment on above: Performed By: #### C MP, TSH #### [facility] [address] [place] [address] Dr. Anthony Saldaña Protein [Mass/Vol] 8.0 g/dL Normal 6.4-8.2 [facility] Comment on above: Performed By: #### C GREGG, TSH #### [facility] [address] [place] [address] Dr. Anthony Saldaña Sodium [Moles/Vol] 139 mmol/L Normal 136-145 [facility] Comment on above: Performed By: #### C GREGG, TSH #### [facility] [address] [place] [address] Dr. Anthony Saldaña Urea nitrogen [Mass/Vol] 9.0 mg/dL Normal 7.0-18.0 [facility] Comment on above: Performed By: #### C GREGG, TSH #### [facility] [address] [place] [address] Dr. Anthony Saldaña Urea nitrogen/Creatinin e [Mass ratio] 11.1 mg/mg Normal [facility] Comment on above: Performed By: #### C GREGG, TSH #### [facility] [address] [place] [address] Dr. Anthony Saldaña TSHon 05-31-2022 TSH 2.103 uIU/mL Normal 0.358-3.740 [facility] Comment on above: Performed By: #### C MP, TSH #### [facility] [address] [place] [address] Dr. Anthony Saldaña Vital Signs Date Time Vital Sign Value Performing Clinician Facility 09-14-2023 15:15-0500 Body height 160.02 cm Miriam Mccarty Other [facility] Other 09-14-2023 15:15-0500 Body mass index (BMI) [Ratio] 25.9 kg/m2 Miriam Mccarty Other [facility] Other 09-14-2023 15:15-0500 Body temperature 98.1 [degF] Miriam Mccarty Other [facility] Other 09-14-2023 15:15-0500 Body weight 66.32 kg Miriam Mccarty Other [facility] Other 09-14-2023 15:15-0500 Diastolic blood pressure 89 mm[Hg] Miriam Mccarty Other [facility] Other 09-14-2023 15:15-0500 Respiratory rate 16 /min Miriam Mccarty Other [facility] Other 09-14-2023 15:15-0500 SaO2% (BldA) [Mass fraction] 99 % Miriam Lul Other [facility] Other 09-14-2023 15:15-0500 Systolic blood pressure 120 mm[Hg] Miriam Mccarty Other [facility] Other 03-01-2023 10:30-0400 Body height 160.02 cm Jordy Ball Other [facility] Other 03-01-2023 10:30-0400 Body mass index (BMI) [Ratio] 25.12 kg/m2 Jordy Ball Other [facility] Other 03-01-2023 10:30-0400 Body weight 64.32 kg Jordy Ball Other [facility] Other 03-01-2023 10:30-0400 Diastolic blood pressure 68 mm[Hg] Jordy Ball Other [facility] Other 03-01-2023 10:30-0400 Respiratory rate 12 /min Jordy Ball Other [facility] Other 03-01-2023 10:30-0400 Systolic blood pressure 100 mm[Hg] Jordy Ball Other [facility] Other 02-20-2023 16:00-0400 Body height 160.02 cm Jordy Ball Other [facility] Other 02-20-2023 16:00-0400 Body mass index (BMI) [Ratio] 24.62 kg/m2 Jordy Ball Other [facility] Other 02-20-2023 16:00-0400 Body weight 63.05 kg Jordy Ball Other [facility] Other 02-20-2023 16:00-0400 Diastolic blood pressure 76 mm[Hg] Jordy Ball Other [facility] Other 02-20-2023 16:00-0400 Respiratory rate 12 /min Jordy Ball Other [facility] Other 02-20-2023 16:00-0400 Systolic blood pressure 109 mm[Hg] Jordy Ball Other [facility] Other 12-23-2022 12:30-0500 Body height 160.02 cm Amelia Lezama Other [facility] Other 12-23-2022 12:30-0500 Body mass index (BMI) [Ratio] 23.56 kg/m2 Amelia Lezama Other [facility] Other 12-23-2022 12:30-0500 Body temperature 98.9 [degF] Amelia Lezama Other [facility] Other 12-23-2022 12:30-0500 Body weight 60.33 kg Amelia Lezama Other [facility] Other 12-23-2022 12:30-0500 Respiratory rate 18 /min Amelia Lezama Other [facility] Other 12-23-2022 12:30-0500 SaO2% (BldA) [Mass fraction] 97 % Amelia Lezama Other [facility] Other Encounters Encounter Date Encounter Type Care Provider Facility Start: 03-13-2024 End: 03-13-2024 ambulatory SHAW CORONA Not Available Start: 03-06-2024 End: 03-06-2024 ambulatory SHAW CORONA Not Available Start: 02-28-2024 End: 02-28-2024 ambulatory JUNITONICHO BLANK Not Available Start: 02-20-2024 End: 02-21-2024 ambulatory FARA LILIANA Not Available Start: 02-13-2024 End: 02-14-2024 ambulatory SHAW CORONA Not Available Start: 02-08-2024 End: 02-08-2024 ambulatory SHAW CORONA Not Available Start: 09-14-2023 End: 09-14-2023 Departed Referred MOTOR VEHICLE COMPLIANCE ANALYST Miriam Mccarty Work Phone: [facility] [place] Work Phone: Start: 09-14-2023 End: 09-14-2023 ambulatory NON STAFF [facility] Work Phone: Start: 09-14-2023 Office outpatient visit 15 minutes Miriam Mccarty [facility] [place] Start: 08-03-2023 End: 08-03-2023 ambulatory Jordy Case Other [facility] Other Start: 08-03-2023 Encounter for genera l adult medical examination without abnormal findings Jordy Case [facility] Start: 08-03-2023 Telephone encounter Jordy Case [facility] Start: 06-25-2023 End: 06-25-2023 ambulatory Jordy Case Other [facility] Other Start: 06-25-2023 Telephone encounter Jordy Csae [facility] Start: 05-03-2023 End: 05-03-2023 ambulatory Jordy Case Other [facility] Other Start: 05-03-2023 Telephone encounter Jordy Case [facility] Start: 04-17-2023 End: 04-17-2023 ambulatory Jordy Case Other [facility] Other Start: 04-17-2023 Telephone encounter Jordy Case [facility] Start: 03-08-2023 End: 03-08-2023 ambulatory Jordy Case Other [facility] Other Start: 03-08-2023 Telephone encounter Jordy Case [facility] Start: 03-07-2023 End: 03-07-2023 ambulatory Jordy Case Facility:[facility] Start: 03-07-2023 End: 03-07-2023 ambulatory V BELT FINISHER-C July L Case Work Phone: [facility] Work Phone: Start: 03-07-2023 End: 03-07-2023 Patient encounter procedure V BELT FINISHER-C July Case Work Phone: [facility] [place] Work Phone: Start: 03-01-2023 End: 03-01-2023 ambulatory Jordy Case Other [facility] Other Start: 03-01-2023 Office outpatient visit 15 minutes Jordy Case [facility] Start: 02-28-2023 End: 02-28-2023 ambulatory Von Multani Facility:[facility] Start: 02-28-2023 End: 02-28-2023 ambulatory V BELT FINISHER-Dominick Mcdowell L Case Work Phone: [facility] Work Phone: Start: 02-28-2023 End: 02-28-2023 Patient encounter procedure V BELT FINISHER-C July Case Work Phone: [facility] [place] Work Phone: Start: 02-27-2023 End: 02-27-2023 ambulatory Jordy Case Other [facility] Other Start: 02-27-2023 Telephone encounter Jordy Case [facility] Start: 02-20-2023 End: 02-20-2023 ambulatory Jordy Case Other [facility] Other Start: 02-20-2023 Office outpatient visit 15 minutes Jordy Case [facility] Start: 01-07-2023 End: 01-07-2023 Emergency department patient visit JORDY CASE [facility] Start: 12-23-2022 End: 12-23-2022 ambulatory Amelia Lezama Other [facility] Other Start: 12-23-2022 Office outpatient visit 25 minutes Amelia Lezama [facility] [place] Start: 12-11-2022 End: 12-11-2022 ambulatory Jordy Case Other [facility] Other Start: 12-11-2022 Office outpatient visit 15 minutes Jordy Case [facility] Start: 06-04-2022 Encounter for genera l adult medical examination without abnormal findings DR JORDY CASE [facility] Start: 05-31-2022 End: 06-01-[address] JORDY CASE Facility: Start: 05-31-2022 End: 06-01-2022 Encounter for general adult medical examination without abnormal findings DR JORDY CASE Facility:[facility] Procedures Date Procedure Procedure Detail Performing Clinician Start: 03-07-2023 US scan of thyroid V BELT FINISHER-C July Case Work Phone: Start: 02-28-2023 MRI of head V BELT FINISHER-C Eddie mercado Case Work Phone: Plan of Treatment Date Care Activity Detail Author Start: 09-14-2023 [facility] Immunizations Immunization Date Immunization Notes Care Provider Fa cili 08-10-2022 influenza virus vaccine, split virus (incl. purified surface antigen) Jordy Case Other [facility] Other 08-10-2021 influenza virus vaccine, split virus (incl. purified surface antigen) Jordy Case Other [facility] Other Payers Date Payer Category Payer Self-pay 1990 Unknown [id number] 2.16.84 [id number] 1990 Unknown [id number] 2.16. [id number] 1990 Unknown [id number] 2.16.84 [id number] 1990 Unknown [id number] 2.16.84 [id number] 1990 Unknown [id number] 2.16.84 [id number] 1990 Unknown [id number] 2.16.84 [id number] 1990 Unknown [id number] 2.16.84 [id number] 1990 Unknown [id number] 2.16.84 [id number] 1959 Unknown [id number] Unknown Regular Insurance [id number] Unknown [id number] 2.16.8 [id number] Unknown [id number] 2.16.8 [id number] Unknown [id number] 2.16.8 [id number] Social History Date Type Detail Facility Sex Assigned At [facility] Other Start: 1990 Sex Assigned At Female [facility] Clinical Notes 12-11-2022 to 09-14-2023 Note Date [...] symptoms persist follow up with PCP or Top Knitter. Immediate eval by ER if back or flank pain, fever, chills, N/V, or any other concerning symptoms arise. Patient verbalizes understanding and is agreeable to treatment plan [facility] Other 10-06-2023 Evaluation note* Encounter Date Diagnosis Assessment Notes Treatment Notes Treatment Clinical Notes Jul, Wellness examination (ICD-10 - Z00.00) [facility] Other 07-06-2023 Evaluation note* Encounter Date Diagnosis Assessment Notes Treatment Notes Treatment Clinical Notes Apr, Attention deficit hyperactivity disorder (ADHD), predominantly inattentive type (ICD-10 - F90.0) [facility] Other 06-20-2023 Evaluation note* Encounter Date Diagnosis Assessment Notes Treatment Notes Treatment Clinical Notes Mar, Attention deficit hyperactivity disorder (ADHD), predominantly inattentive type (ICD-10 - F90.0) [facility] Other 05-04-2023 Evaluation note* Encounter Date Diagnosis Assessment Notes Treatment Notes Treatment Clinical Notes February, Acute bacterial conjunctivitis of right eye (ICD-10 - H10.31) Warm compresses, artificial tears. Wash hands frequently February, Contact lens overwea r of both eyes (ICD-10 - H18.823) Wear glasses until infection clears [facility] Other 05-02-2023 Evaluation note* Encounter Date Diagnosis Assessment Notes Treatment Notes Treatment Clinical Notes February, Attention deficit hyperactivity disorder (ADHD), predominantly inattentive type (ICD-10 - F90.0) [facility] Other 04-25-2023 Evaluation note* Encounter Date Diagnosis [...] - F41.1) Healthy diet, exercise, keep active [facility] Other 02-25-2023 Evaluation note* Encounter Date Diagnosis [...] therapy plan may need to be made. [facility] Other 02-13-2023 Evaluation note* Encounter Date Diagnosis [...] diet and exercise w/ proper sleep routine [facility] Other Evaluation noteNo assessment information available [facility] Work Phone: Evaluation noteNo [facility] Other History general Narrative - Reported* Type [...] SURGERY 2013 Hospitalization History SEE SURGICAL HX [facility] Other Summary Purpose Family History No Family History Records FoundNo Family History Records FoundNo Family History Records FoundNo Family History Records Found Advance Directives No Advanced Directives Records Found Advance Directive Response Recorded Date/ Time Advance Directives No February 20 10:42am Advance Directive Response Recorded Date/ Time Advance Directives No February 20 9:42am Chief Complaint and Reason for Visit Chief Complaint R27.0 R51.9 Chief Complaint R27.0 R51.9 nodule Additional Source Comments INFORMATION SOURCE (unrecogn ized section and content) DATE CREATED AUTHOR 06/04/2022 Roxanna mcclain DATE CREATED AUTHOR AUTHOR'S ORGANIZ ATION 01/13/2023 [facility] DATE CREATED AUTHOR AUTHOR'S ORGANIZ ATION 09/25/2023 [facility] DATE CREATED AUTHOR AUTHOR'S ORGANIZ ATION 03/16/[address] [place] [address] [facility] EPIC REASON FOR VISIT (unrecogniz ed section and content) [id number] ANGEL ESTIONMigrainesRefillpink eye and swelled eyepink eye and swelled eyeU/S ResultsrefillRe-Send AdderallLab ResultsmedicationSTD TESTING Care Teams (unrecognized sec tion and content) Team Status: Active Member Role Status Dates uJly Campbell Case , V BELT FINISHER-C Primary Care Provider Active Team Status: Inactive Member Role Status Dates Dylan Multani DO Attending Provider Active July Campbell Case , V BELT FINISHER-C Primary Care Provider Active Team Status: Inactive Member Role Status Dates July Campbell Case , V BELT FINISHER-C Primary Care Provider Active Jordy Case DO Attending Provider Active Team Status: Inactive [...] BE BASED ON THE PRIMARY CLINICAL RECORDS. [facility]. provides no warranty or guarantee of the accuracy or completeness of information in this document.
[2024-06-20 12:31] LABS: Alanine Aminotransferase 25 U/L (14-59); Albumin Globulin Ratio 1.1; Albumin Level 4.2 g/dL (3.4-5.0); Alkaline Phosphatase 50 U/L (46-116); Anion Gap 9.5; Aspartate Amino Transferase 15 U/L (15-37); BUN Creatinine Ratio 12.9; Bilirubin Total 0.6 mg/dL (0.2-1.0); Calcium 9.5 mg/dL (8.5-10.1); Carbon Dioxide 30.2 mmol/L (21.0-32.0); Chloride 103 mmol/L (98-107); Chol HDL Ratio 2.2; Cholesterol 200 mg/dL (<=200); Estimated GFR (African America >60 (>=60); Estimated GFR (Non-African Ame >60 (>=60); Globulin 3.7 g/dL; Glucose 95 mg/dL (74-106); HDL Cholesterol 92 mg/dL (40-60); Potassium 4.7 mmol/L (3.5-5.1); Sodium 138 mmol/L (136-145); Thyroid Stimulating Hormone 2.658 uIU/mL (0.358-3.740); Total Protein 7.9 g/dL (6.4-8.2); Triglycerides 51 mg/dL (<=150); VLDL CHOLESTEROL 10.2 mg/dL
== END 2024-06-20 10:05 | disposition home or self-care (01) ==
LOC: LAB 10:05
PROVIDERS: PCP Internal Medicine; Visit Provider Internal Medicine
DX: Z00.00 Encounter for general adult medical examination without abnormal findings (principal)
CPT/HCPCS: 36415; 80053; 80061; 84443; 85025

== ENCOUNTER 2024-06-20 16:57 | Emergency (ER) | payer OTHER, SELFPAY ==
[2024-06-20 17:02] VITALS: BP 150/104; PULSE 64; TEMP 36.4; O2SAT 98; BMI 25.6
--- NOTE | 2024-06-20 17:08 | CT_ITS ---
The [address] [address] Patient Name: PHYLLIS VENTURA MRN: [id number] date: 1990 Sex: F Assigned Patient Location: ER Current Patient Location: ER Accession/Order Number: [id number] Exam Date: 06/20/2024 17:40 Report Date: 06/20/2024 18:09 At the request of: OSMAN JENKINS Procedure: CT head/brain wo con EXAM: CT head/brain wo con HISTORY: Headache COMPARISON: None. TECHNIQUE: Axial CT scans through the head were obtained without IV contrast administration. Dose reduction techniques were achieved by using: automated exposure control and/or adjustment of mA and /or kV according to patient size and/or use of iterative reconstruction technique. FINDINGS: There is no acute intracranial hemorrhage or abnormal extra-axial fluid collection. No mass effect or midline shift is seen. There is no evidence of large acute territorial infarction. There is no hydrocephalus. To the limit of CT, the posterior fossa appears unremarkable. The calvaria and extra cranial soft tissues are unremarkable. The visualized orbits show no abnormality. The visualized paranasal sinuses show no air-fluid level. Mastoid air cells are clear. CT/CT head/brain wo con IMPRESSION: Normal CT brain performed without contrast. Electronically authenticated by: MIMI MORENO Date: 06/20/2024 18:09
--- NOTE | 2024-06-20 17:09 | ED_ITS ---
<Statement entered by Jayla Kelly MD - 06/20/24 18:30> This documentation has been reviewed and approved. HPI HPI - General Adult General Chief complaint: Headache Stated complaint: HEADACHE Time Seen by Provider: 06/20/24 16:58 History of Present Illness HPI narrative: Patient is a 33-year-old female who presents to the emergency department for 2- hour history of global headache. She states she has had similar migraines in the past but typically her headaches are only in 1 spot and she feels this is more severe. No visual changes, peripheral paresthesias. She has had multiple episodes of vomiting. No falls or injuries. No recent illness, fevers or upper respiratory symptoms. She is not concerned for . She states she tried to take Relpax, she is known to local neurology, she states she took 1 pill but had no improvement and continued vomiting. She is moaning and uncooperative with exam initially. Related Data Home Medications ?Medication ?Instructions ?Recorded ?Confirmed dextroamphetamine-amphetamine 10 09/07/23 mg tablet eletriptan 40 mg tablet mg 09/07/23 fluoxetine 10 mg tablet mg 09/07/23 amoxicillin 500 mg capsule mg 01/14/24 Previous Rx's ?Medication ?Instructions ?Recorded ketorolac 10 mg tablet 10 mg PO TID PRN pain #10 tabs 06/20/24 ondansetron 4 mg disintegrating 4 mg PO Q6H PRN nausea and 06/20/24 tablet vomiting #12 tabs Allergies Allergy/AdvReac Type Severity Reaction Status Date / Time No Known Drug Allergies Allergy Verified 06/20/24 17:02 Opioid HPI Opioid Management Most Recent Opioid Data: Last Pain Scale 7 06/20/24 17:22 Last MAR Pain Assessment 06/20/24 17:22 Review of Systems ROS Constitutional Denies: fever or chills Eyes Denies: change in vision Ears, nose, mouth, and throat Denies: throat pain Cardiovascular Denies: chest pain Respiratory Denies: shortness of breath or cough Gastrointestinal Reports: nausea and vomiting Musculoskeletal Denies: back pain or neck pain Integumentary/Breast Denies: rash Neurological Reports: headache; Denies: numbness in extremities or weakness in extremities Hematologic/Lymphatic Denies: easy bruising or easy bleeding PFSH PFSH Social History Smoking status: Never smoker Exam Narrative Exam Narrative: Gen.: Moaning on exam cart, covering her face with a towel, rolling around in the bed Head: Normocephalic, atraumatic ENT: Moist mucous membranes, no meningismus or nuchal rigidity Respiratory: No respiratory distress, lungs clear bilaterally Cardio: Regular rate and rhythm Extremities: Moves extremities equally Psych: Normal mood and affect Neuro: No focal neuro deficit Skin: Warm, dry, intact Constitutional Vital Signs, click to edit/add: Last Vital Signs Temp 97.6 F 06/20/24 17:02 Pulse 64 06/20/24 17:02 Resp 16 06/20/24 17:02 BP 150/104 H 06/20/24 17:02 Pulse Ox 98 06/20/24 17:02 Course Vital Signs Vital signs: Vital Signs Temperature 97.6 F 06/20/24 17:02 Pulse Rate 64 06/20/24 17:02 Respiratory Rate 16 06/20/24 17:02 Blood Pressure 150/104 H 06/20/24 17:02 Pulse Oximetry 98 06/20/24 17:02 Temperature 97.6 F 06/20/24 17:02 Pulse Rate 64 06/20/24 17:02 Respiratory Rate 16 06/20/24 17:02 Blood Pressure 150/104 H 06/20/24 17:02 Pulse Oximetry 98 06/20/24 17:02 Medical Decision Making MDM Narrative Medical decision making narrative: Patient sent for head CT, this is unremarkable. She was medicated with IV fluids, Toradol, Reglan, Benadryl, Ativan. She is sleeping soundly on reevaluation and reports she is feeling well enough to go home, her is at bedside. She was given prescriptions of Toradol, Reglan for home. Follow-up with PCP and return to the ER if symptoms change or worsen SUPERVISED APC VISIT, PHYSICIAN ATTESTATION: Based on the medical record the care appears appropriate. ? Medical Records Medical records reviewed: Yes I reviewed the patient's medical records Imaging Data CT scan - head: Attestation: I have reviewed the pertinent imaging results. Radiologist's impression: ITS Impressions Head CT 06/20/24 17:08 IMPRESSION: Normal CT brain performed without contrast. Electronically authenticated by: MIMI MORENO Date: 06/20/2024 18:09 Discharge Plan Discharge Stand Alone Forms: Work/School Release, Portal Instructions Chief Complaint: Headache Clinical Impression: Headache Patient Disposition: Home, Self-Care Time of Disposition Decision: 18:26 Condition: Good Prescriptions / Home Meds: New ketorolac 10 mg tablet 10 mg PO TID PRN (Reason: pain) Qty: 10 0RF ondansetron 4 mg tablet,disintegrating 4 mg PO Q6H PRN (Reason: nausea and vomiting) Qty: 12 0RF No Action eletriptan 40 mg tablet dextroamphetamine-amphetamine 10 mg tablet fluoxetine 10 mg tablet amoxicillin 500 mg capsule Print Language: Hong Konger Instructions: Acute Headache (ED) Referrals: Jordy Case DO [Primary Care Provider] - 1 week
[2024-06-20] MEDS: DIPHENHYDRAMINE HCL 50 MG/ML VIAL 25 MG IV (17:21)
[2024-06-20] MEDS: 0.9 % SODIUM CHLORIDE 1,000 ML 999 ML IV (17:21)
[2024-06-20] MEDS: KETOROLAC TROMETHAMINE 30 MG/ML VIAL IVP (17:22)
[2024-06-20] MEDS: METOCLOPRAMIDE HCL 10 MG/2 ML VIAL IVP (17:22)
[2024-06-20] MEDS: LORAZEPAM 2 MG/ML VIAL 0.5 MG IV (17:23)
--- OUTSIDE RECORDS SUMMARY | 2024-06-20 17:30 | XMS_ITS | CCD ---
Author Organization [facility] Care Team Providers Care Tufter Name Role Phone DR JORDY CASE Admitting Unavailable TYE, DR CONKLIN Attending Unavailable TYE, DR CONKLIN Primary Care Unavailable TYE, DR CONKLIN Consulting Unavailable Jordy Case Unavailable Amelia Lezama Unavailable JORDY CASE Primary Care Unavailable ZEONBIA WHALEN Attending Unavailab DO Dylan Kelley Attending Provider CAT Murcia Primary Care Provider [phone] DO Jordy Case Attending Provider Miriam Mccarty Unavailable BALDOMERO Mccarty Attending Provider NON STAFF Primary Care Unavailable Miriam Mccarty Admitting Unavailable Miriam Mccarty Attending Unavailable Vno Multani Admitting Unavailab Von Kelley Attending Unavailab July Roper Primary Care Unavailable Jordy Case Admitting Unavailable Jordy Case Attending Unavailable July Murcia Primary Care Unavailable SHAW CORONA Attending Unavailable INEZ ALCOCER Referring Unavailable SHAW CORONA Attending Unavailable INEZ ALCOCER Referring Unavailable FARA FORD Attending Unavailable INEZ ALCOCER Referring Unavailable JUNITO BLANK Attending Unavailable INEZ ALCOCER Referring Unavailable SHAW CORONA Attending Unavailable INEZ ALCOCER Referring Unavailable SHAW CORONA Attending Unavailable INEZ ALCOCER Referring Unavailable Allergies Allergy Classification Reported Allergen(s) Allergy Type Date of Onset Reaction(s) Facility (1 source) Unable to Assess Drug allergy (disorder) 02-28-2023 [facility] Repository Medications Current Medications Medication Drug [...] Active Start: 06-15-2023 take 1 tablet by [facility] every twelve hours Adderall 7.5 MG 1 tablet Orally Twice a day for 30 days May, Active Start: 05-03-20[address] [facility] every twenty-four hours Adderall XR 15 MG 1 capsule Orally Once a day for 30 days Apr, Active Start: 04-17-[address] [facility] every twenty-four hours Adderall XR 15 MG 1 capsule Orally Once a day for 30 days Mar, Active Start: 02-27-[address] [facility] every twenty-four hours Adderall XR 10 MG 1 capsule Orally Once a day for 30 days February, Active Start: 01-10-[address] [facility] every twenty-four hours Adderall XR 10 MG 1 capsule Orally Once a day Dec, Active Start: 12-11-[address] [facility] every twenty-four hours Adderall XR 10 MG [...] NAAon Chlamydia Trachomotis, ELINOR Negative Normal Negative [facility] Comment on above: Performed By: #### G CCHLAMTRI #### [facility] , Neisseria Gonorrhoeae, ELINOR Negative Normal Negative [facility] Comment on above: Performed By: #### G CCHLAMTRI #### [facility] , Trichomonas ELINOR Negative Normal Negative [facility] Comment on above: Result Comment: Perf ormed at: =G - [facility] [address] [id number] City Director: Yasmin Bartholomew MD, Phone: [phone] PERFORMED BY: [place] [address] PATHOLOGIST LOOK OUT TOWER FIRE WATCHER ALVARADO CAT M.D. Performed By: #### G CCHLAMTRI #### [facility] , US thyroidon 03-07-2023 US thyroid [facility] [place] [address] Ultrasound Report Signed Patient: Phyllis Ventura MR#: [id number] : 1990 Acct:[id number] Age/Sex: 32 / F ADM Date: 03/07/23 Loc: Room: Type: [facility] Attending Dr: Jordy Case DO Ordering Provider: [...] Adrianna Chapman M.D.03/07/2023 4:54 PM Dictation Location: [place] [address] Tech: Karen Amira Transcribed By: VIN 03/07/231653 Dictated By: Adrianna Chapman MD 03/07/231650 Signed By: 03/07/231653 [facility] MR head/brain wo/w chris MR head/brain wo/w con [facility] [place] [address] MRI Report Signed Patient: Phyllis Ventura MR#: [id number] : 1990 Acct:[id number] Age/Sex: 32 / F ADM Date: 02/28/23 Loc: Room: Type: [facility] Attending Dr: Dylan Multani DO Copies to: [...] Adrianna Chapman M.D.02/28/2023 5:09 PM Dictation Location: [place] [address] Transcribed By: [facility] 02/28/231708 Dictated By: Adrianna Chapman MD 02/28/231702 Signed By: 02/28/231708 Normal [facility] Quick Strepon 12-23-2022 S. pyogenes Org specific cx Ql (Throat) Negative [facility] siOPTICA Other Quick Strep [facility] Other CBC AUTO DIFFon 05-31-2022 BASO # 0.0 103/ul Normal 0.0-0.1 [facility] Comment on above: Performed By: #### C BC #### [facility] [address] [place] [address] Dr. Anthony Saldaña Basophils/100 WBC (Bld) 0.7 % Normal 0.2-2.0 [facility] Comment on above: Performed By: #### C BC #### [facility] [address] [place] [address] Dr. Anthony Saldaña EO # 0.2 103/ul Normal 0.0-0.7 [facility] Comment on above: Performed By: #### C BC #### [facility] [address] [place] [address] Dr. Anthony Saldaña Eosinophils/100 WBC (Bld) 2.8 % Normal 0.9-7.0 [facility] Comment on above: Performed By: #### C BC #### [facility] [address] [place] [address] Dr. Anthony Saldaña Erythrocyte distribution width (RBC) [Ratio] 12.2 % Normal 11.0-15.0 [facility] Comment on above: Performed By: #### C BC #### [facility] [address] [place] [address] Dr. Anthony Saldaña Hematocrit (Bld) [Volume fraction] 38.1 % Normal 36.0-48.0 [facility] Comment on above: Performed By: #### C BC #### [facility] [address] [place] [address] Dr. Anthony Saldaña Hemoglobin (Bld) [Mass/Vol] 12.9 g/dL Normal 12.0-16.0 [facility] Comment on above: Performed By: #### C BC #### [facility] [address] [place] [address] Dr. Anthony Saldaña IG # 0.02 10e3/ul Normal 0.00-0.03 [facility] Comment on above: Performed By: #### C BC #### [facility] [address] [place] [address] Dr. Anthony Saldaña IG % 0.4 % Normal 0.0-0.5 [facility] Comment on above: Performed By: #### C BC #### [facility] [address] [place] [address] Dr. Anthony Saldaña LYMPH # 2.1 103/ul Normal 1.2-3.8 [facility] Comment on above: Performed By: #### C BC #### [facility] [address] [place] [address] Dr. Anthony Saldaña Lymphocytes/100 WBC (Bld) 39.6 % Normal 20.5-60.0 [facility] Comment on above: Performed By: #### C BC #### [facility] [address] [place] [address] Dr. Anthony Saldaña MANUAL DIFF REQ NO Normal [facility] Comment on above: Performed By: #### C BC #### [facility] [address] [place] [address] Dr. Anthony Saldaña MCH (RBC) [Entitic mass] 31.6 pg Normal 26.7-34.0 [facility] Comment on above: Performed By: #### C BC #### [facility] [address] [place], [place] [id number] Dr. Anthony Saldaña MCHC (RBC) [Mass/Vol] 33.9 g/dL Normal 29.9-35.2 [facility] Comment on above: Performed By: #### C BC #### [facility] [address] [place] [address] Dr. Anthony Saldaña MCV (RBC) [Entitic vol] 93.4 fL Normal 81.0-99.0 [facility] Comment on above: Performed By: #### C BC #### [facility] [address] [place] [address] Dr. Anthony Saldaña MONO # 0.5 103/ul Normal 0.3-0.8 [facility] Comment on above: Performed By: #### C BC #### [facility] [address] [place] [address] Dr. Anthony Saldaña Monocytes/100 WBC (Bld) 9.5 % Normal 1.7-12.0 [facility] Comment on above: Performed By: #### C BC #### [facility] [address] [place] [address] Dr. Anthony Saldaña NEUT # 2.5 103/ul Normal 1.4-6.5 [facility] Comment on above: Performed By: #### C BC #### [facility] [address] [place] [address] Dr. Anthony Saldaña Neutrophils/100 WBC (Bld) 47.0 % Normal 43.0-75.0 [facility] Comment on above: Performed By: #### C BC #### [facility] [address] [place] [address] Dr. Anthony Saldaña Platelet mean volume (Bld) [Entitic vol] 8.6 fL Critically low 9.5-13.5 [facility] Comment on above: Performed By: #### C BC #### [facility] [address] [place] [address] Dr. Anthony Saldaña PLT 270 103/ul Normal 150-450 [facility] Comment on above: Performed By: #### C BC #### [facility] [address] [place] [address] Dr. Anthony Saldaña RBC 4.08 106/ul Critically low 4.20-5.40 [facility] Comment on above: Performed By: #### C BC #### [facility] [address] [place] [address] Dr. Anthony Saldaña WBC 5.4 103/ul Normal 4.0-11.0 [facility] Comment on above: Performed By: #### C BC #### [facility] [address] [place] [address] Dr. Anthony Saldaña PROF 14(COMP METB)on 022 Albumin [Mass/Vol] 4.3 g/dL Normal 3.4-5.0 [facility] Comment on above: Performed By: #### C MP, TSH #### [facility] [address] [place] [address] Dr. Anthony Saldaña Albumin/Globulin [Mass ratio] 1.2 {ratio} Normal [facility] Comment on above: Performed By: #### C MP, TSH #### [facility] [address] [place] [address] Dr. Anthony Saldaña ALP [Catalytic activity/Vol] 41 U/L Critically low 46-116 [facility] Comment on above: Performed By: #### C MP, TSH #### [facility] [address] [place] [address] Dr. Anthony Saldaña ALT [Catalytic activity/Vol] 17 U/L Normal 14-59 [facility] Comment on above: Performed By: #### C MP, TSH #### [facility] [address] [place] [address] Dr. Anthony Saldaña Anion gap [Moles/Vol] 11.7 mmol/L Normal [facility] Comment on above: Performed By: #### C MP, TSH #### [facility] [address] [place] [address] Dr. Anthony Saldaña AST [Catalytic activity/Vol] 15 U/L Normal 15-37 [facility] Comment on above: Performed By: #### C MP, TSH #### [facility] [address] [place] [address] Dr. Anthony Saldaña Bilirubin [Mass/Vol] 0.5 mg/dL Normal 0.2-1.0 [facility] Comment on above: Performed By: #### C MP, TSH #### [facility] [address] [place] [address] Dr. Anthony Saldaña Calcium [Mass/Vol] 9.2 mg/dL Normal 8.5-10.1 [facility] Comment on above: Performed By: #### C MP, TSH #### [facility] [address] [place] [address] Dr. Anthony Saldaña Chloride [Moles/Vol] 103 mmol/L Normal 98-107 [facility] Comment on above: Performed By: #### C MP, TSH #### [facility] [address] [place] [address] Dr. Anthony Saldaña CO2 [Moles/Vol] 28.5 mmol/L Normal 21.0-32.0 [facility] Comment on above: Performed By: #### C MP, TSH #### [facility] [address] [place] [address] Dr. Anthony Saldaña Creatinine [Mass/Vol] 0.81 mg/dL Normal 0.55-1.02 [facility] Comment on above: Performed By: #### C MP, TSH #### [facility] [address] [place] [address] Dr. Anthony Saldaña EGFR-AF MALDIVIAN >60 Normal >=60 [facility] Comment on above: Performed By: #### C MP, TSH #### [facility] [address] [place] [address] Dr. Anthony Saldaña EGFR-NON AF MALDIVIAN >60 Normal >=60 [facility] Comment on above: Performed By: #### C MP, TSH #### [facility] [address] [place] [address] Dr. Anthony Saldaña Globulin (S) [Mass/Vol] 3.7 g/dL Normal [facility] Comment on above: Performed By: #### C MP, TSH #### [facility] [address] [place] [address] Dr. Anthony Saldaña Glucose [Mass/Vol] 92 mg/dL Normal 74-106 [facility] Comment on above: Performed By: #### C MP, TSH #### [facility] [address] [place] [address] Dr. Anthony Saldaña Potassium [Moles/Vol] 4.2 mmol/L Normal 3.5-5.1 [facility] Comment on above: Performed By: #### C MP, TSH #### [facility] [address] [place] [address] Dr. Anthony Saldaña Protein [Mass/Vol] 8.0 g/dL Normal 6.4-8.2 [facility] Comment on above: Performed By: #### C GREGG, TSH #### [facility] [address] [place] [address] Dr. Anthony Saldaña Sodium [Moles/Vol] 139 mmol/L Normal 136-145 [facility] Comment on above: Performed By: #### C GREGG, TSH #### [facility] [address] [place] [address] Dr. Anthony Saldaña Urea nitrogen [Mass/Vol] 9.0 mg/dL Normal 7.0-18.0 [facility] Comment on above: Performed By: #### C GREGG, TSH #### [facility] [address] [place] [address] Dr. Anthony Saldaña Urea nitrogen/Creatinin e [Mass ratio] 11.1 mg/mg Normal [facility] Comment on above: Performed By: #### C GREGG, TSH #### [facility] [address] [place] [address] Dr. Anthony Saldaña TSHon 05-31-2022 TSH 2.103 uIU/mL Normal 0.358-3.740 [facility] Comment on above: Performed By: #### C MP, TSH #### [facility] [address] [place] [address] Dr. Anthony Saldaña Vital Signs Date Time Vital Sign Value Performing Clinician Facility 09-14-2023 15:15-0500 Body height 160.02 cm Miriam Mccarty Other [facility] Other 09-14-2023 15:15-0500 Body mass index (BMI) [Ratio] 25.9 kg/m2 Miriam Mccarty Other [facility] Other 09-14-2023 15:15-0500 Body temperature 98.1 [degF] Miriam Mccarty Other [facility] Other 09-14-2023 15:15-0500 Body weight 66.32 kg Miriam Mccarty Other [facility] Other 09-14-2023 15:15-0500 Diastolic blood pressure 89 mm[Hg] Miriam Mccarty Other [facility] Other 09-14-2023 15:15-0500 Respiratory rate 16 /min Miriam Mccarty Other [facility] Other 09-14-2023 15:15-0500 SaO2% (BldA) [Mass fraction] 99 % Miriam Lul Other [facility] Other 09-14-2023 15:15-0500 Systolic blood pressure 120 mm[Hg] Miriam Mccarty Other [facility] Other 03-01-2023 10:30-0400 Body height 160.02 cm Jordy Ball Other [facility] Other 03-01-2023 10:30-0400 Body mass index (BMI) [Ratio] 25.12 kg/m2 Jordy Ball Other [facility] Other 03-01-2023 10:30-0400 Body weight 64.32 kg Jordy Ball Other [facility] Other 03-01-2023 10:30-0400 Diastolic blood pressure 68 mm[Hg] Jordy Ball Other [facility] Other 03-01-2023 10:30-0400 Respiratory rate 12 /min Jordy Ball Other [facility] Other 03-01-2023 10:30-0400 Systolic blood pressure 100 mm[Hg] Jordy Ball Other [facility] Other 02-20-2023 16:00-0400 Body height 160.02 cm Jordy Ball Other [facility] Other 02-20-2023 16:00-0400 Body mass index (BMI) [Ratio] 24.62 kg/m2 Jordy Ball Other [facility] Other 02-20-2023 16:00-0400 Body weight 63.05 kg Jordy Ball Other [facility] Other 02-20-2023 16:00-0400 Diastolic blood pressure 76 mm[Hg] Jordy Ball Other [facility] Other 02-20-2023 16:00-0400 Respiratory rate 12 /min Jordy Ball Other [facility] Other 02-20-2023 16:00-0400 Systolic blood pressure 109 mm[Hg] Jordy Ball Other [facility] Other 12-23-2022 12:30-0500 Body height 160.02 cm Amelia Lezama Other [facility] Other 12-23-2022 12:30-0500 Body mass index (BMI) [Ratio] 23.56 kg/m2 Amelia Lezama Other [facility] Other 12-23-2022 12:30-0500 Body temperature 98.9 [degF] Amelia Lezama Other [facility] Other 12-23-2022 12:30-0500 Body weight 60.33 kg Amelia Lezama Other [facility] Other 12-23-2022 12:30-0500 Respiratory rate 18 /min Amelia Lezama Other [facility] Other 12-23-2022 12:30-0500 SaO2% (BldA) [Mass fraction] 97 % Amelia Lezama Other [facility] Other Encounters Encounter Date Encounter Type Care [...] Available Start: 09-14-2023 End: 09-14-2023 Departed Referred [employer] DES[employer] Miriam Mcacrty Work Phone: [facility] [place] Work Phone: Start: 09-14-2023 End: 09-14-2023 ambulatory NON STAFF [facility] Work Phone: Start: 09-14-2023 Office outpatient visit 15 minutes Miriam Mccarty [facility] [place] Start: 08-03-2023 End: 08-03-2023 ambulatory Jordy Case Other [facility] Other Start: 08-03-2023 Encounter for genera l adult medical examination without abnormal findings Jordy Case [facility] Start: 08-03-2023 Telephone encounter Jordy Case [facility] Start: 06-25-2023 End: 06-25-2023 ambulatory Jordy Case Other [facility] Other Start: 06-25-2023 Telephone encounter Jordy Case [facility] Start: 05-03-2023 End: 05-03-2023 ambulatory Jordy Case Other [facility] Other Start: 05-03-2023 Telephone encounter Jordy Case [facility] Start: 04-17-2023 End: 04-17-2023 ambulatory Jordy Case Other [facility] Other Start: 04-17-2023 Telephone encounter Jordy Case [facility] Start: 03-08-2023 End: 03-08-2023 ambulatory Jordy Case Other [facility] Other Start: 03-08-2023 Telephone encounter Jordy Case [facility] Start: 03-07-2023 End: 03-07-2023 ambulatory Jordy Case Facility:[facility] Start: 03-07-2023 End: 03-07-2023 ambulatory RADIOLOGY AIDE-C July L Case Work Phone: [facility] Work Phone: Start: 03-07-2023 End: 03-07-2023 Patient encounter procedure RADIOLOGY AIDE-C July Case Work Phone: [facility] [place] Work Phone: Start: 03-01-2023 End: 03-01-2023 ambulatory Jordy Case Other [facility] Other Start: 03-01-2023 Office outpatient visit 15 minutes Jordy Case [facility] Start: 02-28-2023 End: 02-28-2023 ambulatory Von Multani Facility:[facility] Start: 02-28-2023 End: 02-28-2023 ambulatory RADIOLOGY AIDE-Dominick Mcdowell L Case Work Phone: [facility] Work Phone: Start: 02-28-2023 End: 02-28-2023 Patient encounter procedure RADIOLOGY AIDE-C July Case Work Phone: [facility] [place] Work Phone: Start: 02-27-2023 End: 02-27-2023 ambulatory Jordy Case Other [facility] Other Start: 02-27-2023 Telephone encounter Jordy Case [facility] Start: 02-20-2023 End: 02-20-2023 ambulatory Jordy Case Other [facility] Other Start: 02-20-2023 Office outpatient visit 15 minutes Jordy Case [facility] Start: 01-07-2023 End: 01-07-2023 Emergency department patient visit JORDY CASE [facility] Start: 12-23-2022 End: 12-23-2022 ambulatory Amelia Lezama Other [facility] Other Start: 12-23-2022 Office outpatient visit 25 minutes Amelia Lezama [facility] [place] Start: 12-11-2022 End: 12-11-2022 ambulatory Jordy Case Other [facility] Other Start: 12-11-2022 Office outpatient visit 15 minutes Jordy Case [facility] Start: 06-04-2022 Encounter for genera l adult medical examination without abnormal findings DR JORDY CASE [facility] Start: 05-31-2022 End: 06-01-[address] JORDY CASE Facility: Start: 05-31-2022 End: 06-01-2022 Encounter for general adult medical examination without abnormal findings DR JORDY CASE Facility:[facility] Procedures Date Procedure Procedure Detail Performing Clinician Start: 03-07-2023 US scan of thyroid RADIOLOGY AIDE-C July Case Work Phone: Start: 02-28-2023 MRI of head RADIOLOGY AIDE-C Eddie mercado Case Work Phone: Plan of Treatment Date Care Activity Detail Author Start: 09-14-2023 [facility] Immunizations Immunization Date Immunization Notes Care Provider Fa cili 08-10-2022 influenza virus vaccine, split virus (incl. purified surface antigen) Jordy Case Other [facility] Other 08-10-2021 influenza virus vaccine, split virus (incl. purified surface antigen) Jordy Case Other [facility] Other Payers Date Payer Category Payer Self-pay 1990 Unknown [id number] 2.16.84 [id number] 1990 Unknown [id number] 2.16. [id number] 1990 Unknown [id number] 2.16.84 [id number] 1990 Unknown [id number] 2.16.84 [id number] 1990 Unknown [id number] 2.16.84 [id number] 1990 Unknown [id number] 2.16.84 [id number] 1990 Unknown [id number] 2.16.84 [id number] 1990 Unknown [id number] 2.16.84 [id number] 1959 Unknown [id number] Unknown Regular Insurance [id number] Unknown [id number] 2.16.8 [id number] Unknown [id number] 2.16.8 [id number] Unknown [id number] 2.16.8 [id number] Social History Date Type Detail Facility Sex Assigned At [facility] Other Start: 1990 Sex Assigned At Female F [facility] Clinical Notes 12-11-2022 to 09-14-2023 Note Date [...] symptoms persist follow up with PCP or Executive Manager. Immediate eval by ER if back or flank pain, fever, chills, N/V, or any other concerning symptoms arise. Patient verbalizes understanding and is agreeable to treatment plan [facility] Other 10-06-2023 Evaluation note* Encounter Date Diagnosis Assessment Notes Treatment Notes Treatment Clinical Notes Jul, Wellness examination (ICD-10 - Z00.00) [facility] Other 07-06-2023 Evaluation note* Encounter Date Diagnosis Assessment Notes Treatment Notes Treatment Clinical Notes Apr, Attention deficit hyperactivity disorder (ADHD), predominantly inattentive type (ICD-10 - F90.0) [facility] Other 06-20-2023 Evaluation note* Encounter Date Diagnosis Assessment Notes Treatment Notes Treatment Clinical Notes Mar, Attention deficit hyperactivity disorder (ADHD), predominantly inattentive type (ICD-10 - F90.0) [facility] Other 05-04-2023 Evaluation note* Encounter Date Diagnosis Assessment Notes Treatment Notes Treatment Clinical Notes February, Acute bacterial conjunctivitis of right eye (ICD-10 - H10.31) Warm compresses, artificial tears. Wash hands frequently February, Contact lens overwea r of both eyes (ICD-10 - H18.823) Wear glasses until infection clears [facility] Other 05-02-2023 Evaluation note* Encounter Date Diagnosis Assessment Notes Treatment Notes Treatment Clinical Notes February, Attention deficit hyperactivity disorder (ADHD), predominantly inattentive type (ICD-10 - F90.0) [facility] Other 04-25-2023 Evaluation note* Encounter Date Diagnosis [...] - F41.1) Healthy diet, exercise, keep active [facility] Other 02-25-2023 Evaluation note* Encounter Date Diagnosis [...] therapy plan may need to be made. [facility] Other 02-13-2023 Evaluation note* Encounter Date Diagnosis [...] diet and exercise w/ proper sleep routine [facility] Other Evaluation noteNo assessment information available [facility] Work Phone: Evaluation noteNo InformationNort[place] [facility] Other History general Narrative - Reported* Type [...] SURGERY 2013 Hospitalization History SEE SURGICAL HX Leondra music Other Summary Purpose Family History No Family [...] DATE CREATED AUTHOR AUTHOR'S ORGANIZ ATION 09/25/[address] [facility] DATE CREATED AUTHOR AUTHOR'S ORGANIZ ATION 03/16/[address] [place] [address] [facility] EPIC REASON FOR VISIT (unrecogniz ed section and content) [id number] ANGEL ESTIONMigrainesRefillpink eye and swelled eyepink eye and swelled eyeU/S ResultsrefillRe-Send AdderallLab ResultsmedicationSTD TESTING Care Teams (unrecognized sec tion and content) Team Status: Active Member Role Status Dates July Campbell Case , RADIOLOGY AIDE-C Primary Care Provider Active Team Status: Inactive Member Role Status Dates Dylan Multani DO Attending Provider Active July Campbell Case , RADIOLOGY AIDE-C Primary Care Provider Active Team Status: Inactive Member Role Status Dates July Campbell Case , RADIOLOGY AIDE-C Primary Care Provider Active Jordy Case DO [...] BE BASED ON THE PRIMARY CLINICAL RECORDS. [facility] provides no warranty or guarantee of the accuracy or completeness of information in this document.
== END 2024-06-20 18:55 | disposition home or self-care (01) ==
PROVIDERS: Emergency Provider Emergency Medicine; PCP Internal Medicine
DX: Z00.00 Encounter for general adult medical examination without abnormal findings (principal); R51.9 Headache, unspecified
CPT/HCPCS: 36415; 70450; 80053; 80061; 84443; 85025; 96361; 96374; 96375; 99285; J1200; J1885; J2060; J2765

== ENCOUNTER 2025-07-04 10:40 | Outpatient (OUT) | payer OTHER, SELFPAY ==
--- OUTSIDE RECORDS SUMMARY | 2025-07-04 10:43 | XMS_ITS | Clinical Summary ---
Author Organization [facility] Address [address] [place] [address] Care Team Providers Care [employer] Name Role Phone Jordy Case DO Primary Care Provider Medications topiramate (Topamax) 25 MG tabletIndication s:Chronic migraine without aura, not intractable, without status migrainosus Take 1 tablet (25 mg) by mouth in the morning and 1 tablet (25 mg) before bedtime. 60 tablet 2 03/17/2024 Active Social History Tobacco Use Types Packs/Day Years Used Date Smoking Tobacco: Never Assessed Comments Unknown Sex and Gender Information Value Date Recorded Sex Assigned at Not on file Legal Sex Female 8:14 PM EDT Gender Identity Not on file Sexual Orientation Not on file Plan of Treatment Health Maintenance Due Date Last Done Comments Pap Smear 2011 Cervical Cancer Screening 2020 HPV/Cotest 2020 Influenza Vaccine (#1) 2025 07/27/2023, 2021, 08/10/2021 Insurance [employer] Care Teams Hurl Shaker Relationship Specialty Start Date End Date Jordy Case DO PCP - General Internal Medicine 01/29/24
--- OUTSIDE RECORDS SUMMARY | 2025-07-04 10:43 | XMS_ITS | Clinical Summary ---
Author Organization [facility] Address [facility] [place] [address] Care Team Providers Care [employer] Name Role Phone Jordy Case DO Primary Care Provider [phone] Allergies No known active allergies Medications eletriptan (Relpax) 40 MG tablet Take 1 (one) tablet (40 mg total) by mouth as needed for migraine may repeat in 2 hours if necessary (Max 2 tablets in 24hr period) . 10 tablet 3 Active Social History Tobacco Use Types Packs/Day Years Used Date Smoking Tobacco: Never Assessed Comments Unknown Sex and Gender Information Value Date Recorded Sex Assigned at Not on file Legal Sex Female 5:10 AM EDT Gender Identity Not on file Sexual Orientation Not on file Last Filed Vital Signs Vital Sign Reading Time Taken Comments Blood Pressure 115/84 01/07/2023 5:17 AM EDT Pulse 64 01/07/2023 5:17 AM EDT Temperature 37.2 C (98.9 F) 01/07/2023 6:38 AM EDT Respiratory Rate 16 01/07/2023 6:25 AM EDT Oxygen Saturation 95% 01/07/2023 5:17 AM EDT Inhaled Oxygen Concentration - - Weight - - Height - - Body Mass Index - - Plan of Treatment Not on file Insurance [id number] (Home) [address] [place] [address] [facility] Care Teams [employer] Relationship Specialty Start Date End Date Jordy Case DO [address] [place] [address] PCP - General Internal Medicine 01/07/23
--- OUTSIDE RECORDS SUMMARY | 2025-07-04 10:44 | XMS_ITS | CCD ---
Author Organization [facility]ini[facility] Care Team Providers Care Chief Fundraising Officer Name Role Phone DR JORDY CASE Admitting [...] Multani Admitting Unavailab Von Kelley Attending Unavailab le July Murcia Primary Care Unavailable Jordy Case Admitting Unavailable Jordy Case Attending Unavailable July Murcia Primary Care Unavailable SHAW CORONA Attending Unavailable INEZ ALCOCER Referring Unavailable SHAW CORONA Attending Unavailable INEZ ALCOCER Referring Unavailable FARA FORD Attending Unavailable ALCOCER, INEZ Referring Unavailable JUNITO BLANK Attending Unavailable ALCOCER, INEZ Referring Unavailable SHAW CORONA Attending Unavailable LEODAN, INEZ Referring Unavailable SHAW CORONA Attending Unavailable LEODAN, INEZ Referring Unavailable JORDY CASE Unavailable Jordy Case DO Primary Care Provider [phone] Jordy Case DO Attending Provider [phone] Allergies Allergy Classification Reported Allergen(s) Allergy Type Date of Onset Reaction(s) Facility (1 source) Unable to Assess Drug allergy (disorder) 02-28-2023 [facility] Repository Medications Current Medications Medication Drug Class(es) Dates Sig (Normalized) Sig (Original) [id number] 200 actuat albuterol 0.09 mg/actuat metered dose inhaler (1 source) beta2-Adrenergic Agonist Start: 09-04-2024 take 1 puff(s) by inhalation every four hours as needed for wheezing Albuterol Sulfate 90 mcg/actuation HFA aerosol inhaler Active 2 PUFF INHALATION Q4H as needed for shortness of breath or wheezing 8.5 10 September 04, 2024 1:00am Complies with drug therapy amphetamine aspartate 2.5 mg / amphetamine sulfate 2.5 mg / dextroamphetamine saccharate 2.5 mg / dextroamphetamine sulfate 2.5 mg oral tablet (20 sources) Central Nervous System Stimulant Start: 10-24-2024 End: 06-01-2025 take 1 tablet by mouth twice daily Dextroamphetamin e-Amphetamine 10 mg tablet Active 10 MG PO Twice daily 60 June 01, 2025 Complies with drug therapy Start: 08-15-2024 End: 08-15-2024 take 1 tablet by mouth twice daily Dextroamphetamine-Amphetamine 10 mg tabl et Discontinued 10 MG PO Twice daily 60 August 15, 2024 August 15, 2024 12:04pm Start: 08-15-2024 End: 10-24-2024 take 1 tablet by mouth twice daily Dextroamphetamine-Amphetamine 10 mg tabl et Discontinued 10 MG PO Twice daily 60 August 15, 2024 October 24, 2024 6:12pm Start: 08-06-2024 End: 08-15-2024 take 1 tablet by mouth once daily Dextroamphetamine-Amphetamine 10 mg tabl et Discontinued 10 MG PO Daily 30 August 06, 2024 August 15, 2024 10:59am Start: 01-21-2024 End: 08-06-2024 take 1 tablet by mouth twice daily Dextroamphetamine-Amphetamine 10 mg tabl et Discontinued 10 MG PO Twice daily 60 June 11, 2024 August 06, 2024 10:32am Start: 01-14-2024 End: 01-21-2024 take 1 tablet by mouth once daily Dextroamphetamine-Amphetamine 10 mg tabl et Discontinued 10 MG PO Daily 30 January 14, 2024 January 21, 2024 1:20pm Start: 01-12-2024 End: 01-14-2024 Dextroamphetamine-Amphetamin e 10 mg tablet Discontinued PO January 12, 2024 12:00am January 14, 2024 5:02pm Start: 08-03-2023 take 1 tablet by yanet every twelve hours Adderall 10 MG 1 tablet Orally Twice a d ay for 30 days Jul, Active Start: 06-15-2023 take 1 tablet by yanet every twelve hours Adderall 7.5 MG 1 tablet Orally Twice a day for 30 days May, Active Start: 05-03-2023 take 1 capsule by mo [facility] every twenty-four hours Adderall XR 15 MG 1 capsule Orally Once a day for 30 days Apr, Active Start: 04-17-2023 take 1 capsule by mo uth every twenty-four hours Adderall XR 15 MG 1 capsule Orally Once a day for 30 days Mar, Active Start: 02-27-2023 take 1 capsule by mo [facility] every twenty-four hours Adderall XR 10 MG 1 capsule Orally Once a day for 30 days February, Active Start: 01-10-2023 take 1 capsule by mo ut every twenty-four hours Adderall XR 10 MG 1 capsule Orally Once a day Dec, Active Start: 12-11-2022 take 1 capsule by mo uth every twenty-four hours Adderall XR 10 MG 1 capsule in the morni ng Orally Once a day for 30 days Nov, Active eletriptan 40 mg oral tablet (1 source) Serotonin-1b and Serotonin-1d Receptor Agonist Start: 07-01-2025 take 1 tablet by mouth every two hours Eletriptan (Relpax) 40 mg tablet Active 0 PO .COMPLEX 6 July 01, 2025 12:00am take 1 tab at onset of headache; if no relief, may repeat 1 tab after at least 2 hrs; max = 2 tabs/24 hrs PO Complies with drug therapy famotidine 40 mg oral tablet (1 source) Histamine-2 Receptor Antagonist Start: 07-01-2025 take 1 tablet by mouth once daily at bedtime Famotidine 40 mg tablet Active 40 MG PO Daily at bedtime July 01, 2025 12:00am Complies with drug therapy FLUoxetine 40 mg oral capsule (11 sources) Serotonin Reuptake Inhibitor Start: 07-01-2025 take 1 capsule by mouth once daily Fluoxetine 40 mg capsule Active 40 MG PO Daily July 01, 2025 3:16pm Complies with drug therapy Start: 12-02-2024 End: 07-01-2025 take 1 capsule by mouth once daily Fluoxetine 20 mg capsule Discontinued 20 MG PO Daily February 24, 2025 1:11pm July 01, 2025 3:17pm Start: 07-15-2024 End: 09-04-2024 take 1 capsule by mouth once daily Fluoxetine 20 mg capsule Discontinued 0 .ROUTE .COMPLEX July 15, 2024 5:41pm September 04, 2024 11:08am TAKE 1 CAPSULE BY MOUTH ONCE DAILY Start: 01-28-2024 End: 07-15-2024 take 1 capsule by mouth once daily Fluoxetine (Prozac) 20 mg capsule Discontinued 20 MG PO Daily January 28, 2024 12:00am July 15, 2024 5:41pm Start: 12-26-2023 End: 01-28-2024 take 1 tablet by mouth once daily in the morning Fluoxetine 10 mg tablet Discontinued 0 .ROUTE .COMPLEX December 26, 2023 7:13pm January 28, 2024 1:30pm TAKE 1 TABLET BY MOUTH EVERY MORNING Start: 12-26-2023 End: 12-26-2023 take 1 tablet by mouth once daily in the morning Fluoxetine 10 mg tablet Discontinued 10 MG PO Every morning December 26, 2023 1:00am December 26, 2023 7:13pm Start: 06-15-2023 take 1 tablet by yanet th once in the morning FLUoxetine HCl 10 MG 1 tablet Orally q am for 30 days May, Active mupirocin 0.02 mg/mg topical ointment (1 source) RNA Synthetase Inhibitor Antibacterial Start: 10-13-2024 mupirocin 2 % topical ointment APPLY A SMALL AMOUNT TO THE AFFECTED AREA AND NARES BY TOPICAL ROUTE 3 TIMES PER DAY 10/13/2024 active Not Available Not Available Not Available rizatriptan 10 mg oral tablet (10 sources) Serotonin-1b and Serotonin-1d Receptor Agonist Start: 02-20-2023 take 1 tablet by mouth every twenty-four hours Maxalt 10 MG 1 tablet Orally Once a day for 1 days Jan, Active sulfamethoxazole 800 mg / trimethoprim 160 mg oral tablet (1 source) Dihydrofolate Reductase Inhibitor Antibacterial, Sulfonamide Antimicrobial Start: 10-13-2024 take 1 tablet by mouth twice daily sulfamethoxazole 800 mg-trimethoprim 160 mg tablet Take 1 tablet twice a day by oral route for 10 days. 10/13/2024 active Not Available Not Available Not Available Completed/Discontinued Medications Medication Drug Class(es) Dates Sig (Normalized) Sig (Original) amoxicillin 500 mg oral capsule (1 source) Penicillin-class Antibacterial Start: 4 End: 4 take 1 capsule by mouth three times daily Amoxicillin 500 mg capsule Discontinued 500 MG PO Three times daily 27 08January 12, 2024 12:00am January 25, 2024 10:19am azithromycin 250 mg oral tablet (1 source) Macrolide Antimicrobial Start: 4 End: 5 Azithromycin 250 mg tablet Discontinued 0 PO .COMPLEX 6 September 04, 2024 1:00am December 01, 2024 3:55pm For 250 mg dose pack: take 500 mg today (day 1), then 250 mg for 4 days (days 2-5) PO ciprofloxacin 3 mg/ml ophthalmic solution (7 sources) [...] a day for 6 days Nov, Not-Taking predniSONE 20 mg oral tablet (1 source) Start: 4 End: 5 take 3 tablets by mouth once daily, then take 2 tablets by mouth once daily, then take 1 tablet by mouth once daily Prednisone 20 mg tablet Discontinued 20 MG PO .COMPLEX 18 September 04, 2024 1:00am December 01, 2024 3:55pm Take 3 tabs po daily x 3 days, then take 2 tabs po daily x 3 days, then take 1 tab po daily x 3 days. 24 hr topiramate 25 mg extended release oral capsule (1 source) Start: End: 4 take 1 capsule by mouth once daily Topiramate 25 mg capsule,extended release 24hr Discontinued 25 MG PO Daily January 28, 2024 12:00am June 20, 2024 9:32am Problems Problem Classification Problem Date Documented Date Episodic/Chronic Acute bronchitis (1 source) Acute bronchitis; Translations: [Acute bronchitis, unspecified] 09-04-2024 Episodic Anxiety disorders (16 sources) Generalized anxiety disorder; Translations: [Generalized anxiety disorder] Chronic Attention-deficit, conduct, and disruptive behavior disorders (20 sources) Attention deficit hyperactivity disorder, predominantly inattentive type; Translations: [Attention-deficit hyperactivity disorder, predominantly inattentive type] 01-25-2024 Chronic Attention-deficit, conduct, and disruptive behavior disorders (5 sources) Attention-deficit hyperactivity disorder, predominantly inattentive type Chronic Diabetes or abnormal glucose tolerance complicating ; childbirth; or the puerperium (12 sources) History of gestational diabetes mellitus; Translations: [Personal history of gestational diabetes] Episodic Headache; including migraine (18 sources) Migraine with aura; Translations: [Migraine with [...] sources) Unspecified acute conjunctivitis, right eye Episodic Malaise and fatigue (2 sources) Fatigue; Translations: [Other fatigue] Onset: 02-03-2025 Resolved: 02-03-2025 Episodic Mood disorders (14 sources) Mild recurrent major depression; Translations: [Major depressive disorder, recurrent, mild] 01-25-2024 Chronic Nausea and vomiting (2 sources) Nausea with vomiting, unspecified; Translations: [Nausea with vomiting, unspecified] Onset: 01-07-2023 Episodic Other eye disorders (2 sources) Corneal disorder due to contact lens, bilateral Episodic Other upper respiratory infections (3 sources) Acute maxillary sinusitis, unspecified; Translations: [Acute pharyngitis, unspecified] Episodic Thyroid disorders (20 sources) Goiter; Translations: [Iodine-deficiency related diffuse (endemic) goiter] Onset: 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-2023 Chronic Viral infection (13 sources) Herpes simplex type 1 infection; Translations: [Herpesviral infection, unspecified] 01-25-2024 Episodic Results Test Name Value Interpretation Reference Range Facil ity Chlamydia/GC/Trich NAAon Chlamydia Trachomotis, ELINOR Negative Normal Negative [facility] Comment on above: Performed By: #### G CCHLAMTRI #### [facility] , Neisseria Gonorrhoeae, ELINOR Negative Normal Negative [facility] Comment on above: Performed By: #### G CCHLAMTRI #### [facility] , Trichomonas ELINOR Negative Normal Negative [facility] Comment on above: Result Comment: Perf ormed at: =G - [facility] [address] [id number] Fleet Administrator: Yasmin Bartholomew MD, Phone: [phone] PERFORMED BY: [address] [address] PATHOLOGIST [facility] ALVARADO CAT M.D. Performed By: #### G CCHLAMTRI #### [facility] , US thyroidon 03-07-2023 US thyroid [facility] [address] [address] Ultrasound Report Signed Patient: Ivone Nino MR#: [id number] : 1990 Acct:[id number] Age/Sex: 32 / F ADM Date: 03/07/23 Loc: Room: Type: REG CLI Attending Dr: Jordy Case DO Ordering Provider: [...] Adrianna Chapman M.D.03/07/2023 4:54 PM Dictation Location: [place] [address] Tech: [facility] Transcribed By: VIN 03/07/231653 Dictated By: Adrianna Chapman MD 03/07/23 165 Signed By: 03/07/231653 [facility] MR head/brain wo/w chris MR head/brain wo/w [facility] [place] [address] MRI Report Signed Patient: Ivone Nino MR#: [id number] : 1990 Acct:[id number] Age/Sex: 32 / F ADM Date: 02/28/23 Loc: Room: Type: [facility] CLI Attending Dr: Dylan Multani DO Copies to: [...] Adrianna Chapman M.D.02/28/2023 5:09 PM Dictation Location: [place] [address] Transcribed By: VIN 02/28/231708 Dictated By: Adrianna Chapman MD 02/28/231702 Signed By: 02/28/231708 Normal [facility] Quick Strepon 12-23-2022 S. pyogenes Org specific cx Ql (Throat) Negative [employer] [facility] [employer] Other Quick Strep [facility] [employer] Other CBC AUTO DIFFon 05-31-2022 BASO # 0.0 103/ul Normal 0.0-0.1 [facility] Comment on above: Performed By: #### C BC #### [facility] [address] [place] [address] Dr. Anthony Saldaña Basophils/100 WBC (Bld) 0.7 % Normal 0.2-2.0 [facility] Comment on above: Performed By: #### C BC #### [facility] [address] [place] [address] [address] Anthony Saldaña EO # 0.2 103/ul Normal 0.0-0.7 [facility] Comment on above: Performed By: #### C BC #### [facility] [address] [place] [address] Dr. Anthony Saldaña Eosinophils/100 WBC (Bld) 2.8 % Normal 0.9-7.0 [facility] Comment on above: Performed By: #### C BC #### [facility] [address] [place] [address] Dr. Anthony Saldaña Erythrocyte distribution width (RBC) [Ratio] 12.2 % Normal 11.0-15.0 [facility] Comment on above: Performed By: #### C BC #### [facility] [address] [place] [address] Dr. Anthony Saldaña Hematocrit (Bld) [Volume fraction] 38.1 % Normal 36.0-48.0 [facility] Comment on above: Performed By: #### C BC #### [facility] [address] [place] [address] Dr. Anthony Saldaña Hemoglobin (Bld) [Mass/Vol] 12.9 g/dL Normal 12.0-16.0 [facility] Comment on above: Performed By: #### C BC #### [facility] [address] [place] [address] Dr. Anthony Saldaña IG # 0.02 10e3/ul Normal 0.00-0.03 [facility] Comment on above: Performed By: #### C BC #### [facility] [address] [place] [address] Dr. Anthony Saldaña IG % 0.4 % Normal 0.0-0.5 [facility] Comment on above: Performed By: #### C BC #### [facility] [address] [place] [address] Dr. Anthony Saldaña LYMPH # 2.1 103/ul Normal 1.2-3.8 [facility] Comment on above: Performed By: #### C BC #### [facility] [address] [place] [address] Dr. Anthony Saldaña Lymphocytes/100 WBC (Bld) 39.6 % Normal 20.5-60.0 [facility] Comment on above: Performed By: #### C BC #### [facility] [address] [place] [address] Dr. Antohny Saldaña MANUAL DIFF REQ NO Normal [facility] Comment on above: Performed By: #### C BC #### [facility] [address] [place] [address] Dr. Anthony Saldaña MCH (RBC) [Entitic mass] 31.6 pg Normal 26.7-34.0 [facility] Comment on above: Performed By: #### C BC #### [facility] [address] [place] [address] Dr. Anthony Saldaña MCHC (RBC) [Mass/Vol] 33.9 g/dL Normal 29.9-35.2 [facility] Comment on above: Performed By: #### C BC #### [facility] [address] [place] [address] Dr. Anthony Saldaña MCV (RBC) [Entitic vol] 93.4 fL Normal 81.0-99.0 [facility] Comment on above: Performed By: #### C BC #### [facility] [address] [place] [address] Dr. Anthony Saldaña MONO # 0.5 103/ul Normal 0.3-0.8 [facility] Comment on above: Performed By: #### C BC #### [facility] [address] [place] [address] Dr. Anthony Saldaña Monocytes/100 WBC (Bld) 9.5 % Normal 1.7-12.0 [facility] Comment on above: Performed By: #### C BC #### [facility] [address] [place] [address] Dr. Anthony Saldaña NEUT # 2.5 103/ul Normal 1.4-6.5 [facility] Comment on above: Performed By: #### C BC #### [facility] [address] [place] [address] Dr. Anthony Saldaña Neutrophils/100 WBC (Bld) 47.0 % Normal 43.0-75.0 [facility] Comment on above: Performed By: #### C BC #### [facility] [address] [place] [address] Dr. Anthony Saldaña Platelet mean volume (Bld) [Entitic vol] 8.6 fL Critically low 9.5-13.5 [facility] Comment on above: Performed By: #### C BC #### [facility] [address] [address] [address] Anthony Saldaña PLT 270 103/ul Normal 150-450 [facility] Comment on above: Performed By: #### C BC #### [facility] [address] [address] [address] Anthony Saldaña RBC 4.08 106/ul Critically low 4.20-5.40 [facility] Comment on above: Performed By: #### C BC #### [facility] [address] [address] [address] Anthony Saldaña WBC 5.4 103/ul Normal 4.0-11.0 [facility] Comment on above: Performed By: #### C BC #### [facility] [address] [place] [address] Dr. Anthony Saldaña PROF 14(COMP METB)on 022 Albumin [Mass/Vol] 4.3 g/dL Normal 3.4-5.0 [facility] Comment on above: Performed By: #### C MP, TSH #### [facility] [address] [place] [address] Dr. Anthony Saldaña Albumin/Globulin [Mass ratio] 1.2 {ratio} [facility] Comment on above: Performed By: #### C MP, TSH #### [facility] [address] [place] [address] Dr. Anthony Saldaña ALP [Catalytic activity/Vol] 41 U/L Critically low 46-116 [facility] Comment on above: Performed By: #### C MP, TSH #### [facility] [address] [place] [address] Dr. Anthony Saldaña ALT [Catalytic activity/Vol] 17 U/L Normal 14-59 [facility] Comment on above: Performed By: #### C MP, TSH #### [facility] [address] [address] [address] Anthony Saldaña Anion gap [Moles/Vol] 11.7 mmol/L Normal [facility] Comment on above: Performed By: #### C MP, TSH #### [facility] [address] [address] [address] Anthony Saldaña AST [Catalytic activity/Vol] 15 U/L Normal 15-37 [facility] Comment on above: Performed By: #### C MP, TSH #### [facility] [address] [address] [address] Anthony Saldaña Bilirubin [Mass/Vol] 0.5 mg/dL Normal 0.2-1.0 [facility] Comment on above: Performed By: #### C MP, TSH #### [facility] [address] [address] [address] Anthony Saldaña Calcium [Mass/Vol] 9.2 mg/dL Normal 8.5-10.1 [facility] Comment on above: Performed By: #### C MP, TSH #### [facility] [address] [place] [address] Dr. Anthony Saldaña Chloride [Moles/Vol] 103 mmol/L Normal 98-107 [facility] Comment on above: Performed By: #### C MP, TSH #### [facility] [address] [address] [address] Anthony Saldaña CO2 [Moles/Vol] 28.5 mmol/L Normal 21.0-32.0 [facility] Comment on above: Performed By: #### C MP, TSH #### [facility] [address] [place] [address] Dr. Anthony Saldaña Creatinine [Mass/Vol] 0.81 mg/dL Normal 0.55-1.02 [facility] Comment on above: Performed By: #### C MP, TSH #### [facility] [address] [place] [address] Dr. Anthony Saldaña EGFR-AF PALAUAN >60 Normal >=60 [facility] Comment on above: Performed By: #### C MP, TSH #### [facility] [address] [place] [address] Dr. Anthony Saldaña EGFR-NON AF PALAUAN >60 Normal >=60 [facility] Comment on above: Performed By: #### C MP, TSH #### [facility] [address] [address] [address] Anthony Saldaña Globulin (S) [Mass/Vol] 3.7 g/dL Normal [facility] Comment on above: Performed By: #### C MP, TSH #### [facility] [address] [address] [address] Anthony Saldaña Glucose [Mass/Vol] 92 mg/dL Normal 74-[address] [facility] Comment on above: Performed By: #### C MP, TSH #### [facility] [address] [place] [address] Dr. Anthony Saldaña Potassium [Moles/Vol] 4.2 mmol/L Normal 3.5-5.1 [facility] Comment on above: Performed By: #### C MP, TSH #### [facility] [address] [place] [address] Dr. Anthony Saldaña Protein [Mass/Vol] 8.0 g/dL Normal 6.4-8.[address] [facility] Comment on above: Performed By: #### C MP, TSH #### [facility] [address] [place] [address] Dr. Anthony Saldaña Sodium [Moles/Vol] 139 mmol/L Normal 136-[address] [facility] Comment on above: Performed By: #### C MP, TSH #### [facility] [address] [place] [address] Dr. Anthony Saldaña Urea nitrogen [Mass/Vol] 9.0 mg/dL Normal 7.0-18.0 [facility] Comment on above: Performed By: #### C MP, TSH #### [facility] [address] [place] [address] Dr. Anthony Saldaña Urea nitrogen/Creatinin e [Mass ratio] 11.1 mg/mg Normal [facility] Comment on above: Performed By: #### C MP, TSH #### [facility] [address] [place] [address] Dr. Anthony Saldaña TSHon 05-31-2022 TSH 2.103 uIU/mL Normal 0.358-3.740 [facility] Comment on above: Performed By: #### C MP, TSH #### [facility] [address] [place] [address] Dr. Anthony Saldaña Vital Signs Date Time Vital Sign Value Performing Clinician Facility 07-01-2025 15:01-0400 Body height 157.48 cm Jordy Ball DO Work Phone: [facility] 07-01-2025 15:01-0400 Body mass index (BMI) [Ratio] 25.9 kg/m2 Jordy Ball DO Work Phone: [facility] 07-01-2025 15:01-0400 Body weight 64.46 kg Jordy Ball DO Work Phone: [facility] 07-01-2025 15:01-0400 Diastolic blood pressure 80 mm[Hg] Jordy Ball DO Work Phone: [facility] 07-01-2025 15:01-0400 Heart rate 73 /min Jordy Ball DO Work Phone: [facility] 07-01-2025 15:01-0400 Respiratory rate 12 /min Jordy Ball DO Work Phone: [facility] 07-01-2025 15:01-0400 Systolic blood pressure 118 mm[Hg] Jordy Ball DO Work Phone: [facility] 09-14-2023 15:15-0500 Body height 160.02 cm Miriam Mccarty Other [email or web address] Other 09-14-2023 15:15-0500 Body mass index (BMI) [Ratio] 25.9 kg/m2 Miriam Mccarty Other [email or web address] Other 09-14-2023 15:15-0500 Body temperature 98.1 [degF] Miriam Mccarty Other [email or web address] Other 09-14-2023 15:15-0500 Body weight 66.32 kg Miriam Mccarty Other [email or web address] Other 09-14-2023 15:15-0500 Diastolic blood pressure 89 mm[Hg] Miriam Lul Other [employer] Other 09-14-2023 15:15-0500 Respiratory rate 16 /min Miriam Lul Other [employer] Other 09-14-2023 15:15-0500 SaO2% (BldA) [Mass fraction] 99 % Miriam Lul Other [employer] Other 09-14-2023 15:15-0500 Systolic blood pressure 120 mm[Hg] Miriam Lul Other [employer] Other 03-01-2023 10:30-0400 Body height 160.02 cm Jordy Ball Other [employer] Other 03-01-2023 10:30-0400 Body mass index (BMI) [Ratio] 25.12 kg/m2 Jordy Ball Other [email or web address] Other 03-01-2023 10:30-0400 Body weight 64.32 kg Jordy Ball Other [employer] Other 03-01-2023 10:30-0400 Diastolic blood pressure 68 mm[Hg] Jordy Ball Other [employer] Other 03-01-2023 10:30-0400 Respiratory rate 12 /min Jordy Ball Other [email or web address] Other 03-01-2023 10:30-0400 Systolic blood pressure 100 mm[Hg] Jordy Ball Other [employer] Other 02-20-2023 16:00-0400 Body height 160.02 cm Jordy Ball Other [employer] Other 02-20-2023 16:00-0400 Body mass index (BMI) [Ratio] 24.62 kg/m2 Jordy Ball Other [email or web address] Other 02-20-2023 16:00-0400 Body weight 63.05 kg Jordy Ball Other [employer] Other 02-20-2023 16:00-0400 Diastolic blood pressure 76 mm[Hg] Jordy Ball Other [employer] Other 02-20-2023 16:00-0400 Respiratory rate 12 /min Jordy Ball Other [employer] Other 02-20-2023 16:00-0400 Systolic blood pressure 109 mm[Hg] Jordy Ball Other [employer] Other 12-23-2022 12:30-0500 Body height 160.02 cm Amelia Teja Other [employer] Other 12-23-2022 12:30-0500 Body mass index (BMI) [Ratio] 23.56 kg/m2 Amelia Lezama Other [employer] Other 12-23-2022 12:30-0500 Body temperature 98.9 [degF] Amelia Lezama Other [employer] Other 12-23-2022 12:30-0500 Body weight 60.33 kg Amelia Lezama Other [employer] Other 12-23-2022 12:30-0500 Respiratory rate 18 /min Amelia Lezama Other [email or web address] Other 12-23-2022 12:30-0500 SaO2% (BldA) [Mass fraction] 97 % Amelia Albaault Other [employer] Other Encounters Encounter Date Encounter Type Care Provider Facility Start: 07-01-2025 End: 07-01-2025 ambulatory Jordy Case DO Work Phone: [facility] Work Phone: Start: 07-01-2025 End: 07-01-2025 Patient encounter procedure Jordy Case DO -[facility] Work Phone: Start: 07-01-2025 End: 07-01-2025 Patient encounter status Jordy Case DO [facility] Start: 02-03-2025 [facility] [place] [facility] Start: 03-13-2024 End: 03-13-2024 ambulatory SHAW CORONA Not Available Start: 03-06-2024 End: 03-06-2024 ambulatory SHAW CORONA Not Available Start: 02-28-2024 End: 02-28-2024 ambulatory JUNITO BLANK Not Available Start: 02-20-2024 End: 02-21-2024 ambulatory FARAKARLA FORD Not Available Start: 02-13-2024 End: 02-14-2024 ambulatory SHAW CORONA Not Available Start: 02-08-2024 End: 02-08-2024 ambulatory SHAW CORONA Not Available Start: 09-14-2023 End: 09-14-2023 Departed Referred PATENT PROSECUTION PARALEGAL Miriam Mccarty Work Phone: [facility] [place] Work Phone: Start: 09-14-2023 End: 09-14-2023 ambulatory NON STAFF [facility] Work Phone: Start: 09-14-2023 Office outpatient visit 15 minutes Miriam Mccarty [facility] Start: 08-03-2023 End: 08-03-2023 ambulatory Jordy Case Other [email or web address] Other Start: 08-03-2023 Encounter for genera l adult medical examination without abnormal findings Jordy Case [facility] Start: 08-03-2023 Telephone encounter Jordy Case [facility] Start: 06-25-2023 End: 06-25-2023 ambulatory Jordy Case Other [email or web address] Other Start: 06-25-2023 Telephone encounter Jordy Case [facility] Start: 05-03-2023 End: 05-03-2023 ambulatory Jordy Case Other [email or web address] Other Start: 05-03-2023 Telephone encounter Jordy Case [facility] Start: 04-17-2023 End: 04-17-2023 ambulatory Jordy Case Other [email or web address] Other Start: 04-17-2023 Telephone encounter Jordy Case [facility] Start: 03-08-2023 End: 03-08-2023 ambulatory Jordy Case Other [email or web address] Other Start: 03-08-2023 Telephone encounter Jordy Case [facility] Start: 03-07-2023 End: 03-07-2023 ambulatory Jordy Case Facility:[facility] Start: 03-07-2023 End: 03-07-2023 ambulatory POLICY SPECIALIST-C July L Case Work Phone: [facility] Work Phone: Start: 03-07-2023 End: 03-07-2023 Patient encounter procedure POLICY SPECIALIST-C July Case Work Phone: [facility] [place] Work Phone: Start: 03-01-2023 End: 03-01-2023 ambulatory Jordy Case Other [email or web address] Other Start: 03-01-2023 Office outpatient visit 15 minutes Jordy Case [facility] Start: 02-28-2023 End: 02-28-2023 ambulatory Von Multani Facility:[facility] Start: 02-28-2023 End: 02-28-2023 ambulatory POLICY SPECIALIST-C July L Case Work Phone: [facility] Work Phone: Start: 02-28-2023 End: 02-28-2023 Patient encounter procedure POLICY SPECIALIST-C July Case Work Phone: [facility] [place] Work Phone: Start: 02-27-2023 End: 02-27-2023 ambulatory Jordy Case Other [email or web address] Other Start: 02-27-2023 Telephone encounter Jordy Case [facility] Start: 02-20-2023 End: 02-20-2023 ambulatory Jordy Case Other [email or web address] Other Start: 02-20-2023 Office outpatient visit 15 minutes Jordy Case [facility] Start: 01-07-2023 End: 01-07-2023 Emergency department patient visit JORDY Erich CASE [facility] Start: 12-23-2022 End: 12-23-2022 ambulatory Amelia Lezama Other [email or web address] Other Start: 12-23-2022 Office outpatient visit 25 minutes Amelia Lezama [facility] Start: 12-11-2022 End: 12-11-2022 ambulatory Jordy Case Other [email or web address] Other Start: 12-11-2022 Office outpatient visit 15 minutes Jordy Case [facility] Start: 06-04-2022 Encounter for genera l adult medical examination without abnormal findings DR JORDY CASE [facility] Start: 05-31-2022 End: 06-01-[address] JRODY CASE Facility:[facility] Start: 05-31-2022 End: 06-01-2022 Encounter for general adult medical examination without abnormal findings DR JORDY CASE Facility:[facility] Procedures Date Procedure Procedure Detail Performing Clinician Start: 03-07-2023 US scan of thyroid POLICY SPECIALIST-C July Case Work Phone: Start: 02-28-2023 MRI of head POLICY SPECIALIST-C Eddie mercado Case Work Phone: Plan of Treatment Date Care Activity Detail Author Start: 02-03-2025 Thyrotropin [Units/v olume] in Serum or Plasma [facility] ([place]) Start: 02-03-2025 InPerson; Lab Draw InPerson; Lab Dra re[place] [facility] Start: 09-14-2023 [facility] Comprehensive metabo lic 2000 panel - Serum or Plasma [facility] Immunizations Immunization Date Immunization Notes Care Provider Fa cility 08-12-2024 influenza, seasonal, injectable [place] [facility] [place] [facility] 08-10-2022 influenza virus vaccine, split virus (incl. purified surface antigen) Jordy Case Other [facility] Other 08-10-2022 influenza virus vaccine, unspecified formulation Jordy Case DO Work Phone: [facility] 08-10-2021 influenza virus vaccine, split virus (incl. purified surface antigen) Jordy Case Other [facility] Other 08-10-2021 influenza virus vaccine, unspecified formulation Jordy Case DO Work Phone: [facility] Payers Date Payer Category Payer Self-pay 1990 Unknown [id number] 2.16.84 [id number] 1990 Unknown [id number] 2.16. [id number] 1990 Unknown [id number] 2.16.84 [id number] 1990 Unknown [id number] 2.16.84 [id number] 1990 Unknown [id number] 2.16.84 [id number] 1990 Unknown [id number] 2.16.84 [id number] 1990 Unknown [id number] 2.16.84 [id number] 1990 Unknown [id number] 2.16.84 [id number] 1959 Unknown [id number] Unknown Regular Insurance [id number] Unknown [id number] 2.16.8 [id number] Unknown [id number] 2.16.8 [id number] Unknown [id number] 2.16.8 [id number] Social History Date Type Detail Facility Sex Assigned At [email or web address] Other Start: 1990 Sex Assigned At Female F [facility] Start: 01-12-2024 Tobacco smoking stat [facility] Never smoked tobacco (finding) [facility] Sex Female (finding) [facility] Medical Equipment Procedure Code Equipment Code Equipment Original Text Equi pment Identifier Dates Procedure Implant ([id number]) Clinical Notes 12-11-2022 to 09-14-2023 Note Date [...] symptoms persist follow up with PCP or [facility]. Immediate eval by ER if back or flank pain, fever, chills, N/V, or any other concerning symptoms arise. Patient verbalizes understanding and is agreeable to treatment plan [email or web address] Other 10-06-2023 Evaluation note* Encounter Date Diagnosis Assessment Notes Treatment Notes Treatment Clinical Notes Jul, Wellness examination (ICD-10 - Z00.00) [email or web address] Other 07-06-2023 Evaluation note* Encounter Date Diagnosis Assessment Notes Treatment Notes Treatment Clinical Notes Apr, Attention deficit hyperactivity disorder (ADHD), predominantly inattentive type (ICD-10 - F90.0) [email or web address] Other 06-20-2023 Evaluation note* Encounter Date Diagnosis Assessment Notes Treatment Notes Treatment Clinical Notes Mar, Attention deficit hyperactivity disorder (ADHD), predominantly inattentive type (ICD-10 - F90.0) [email or web address] Other 05-04-2023 Evaluation note* Encounter Date Diagnosis Assessment Notes Treatment Notes Treatment Clinical Notes February, Acute bacterial conjunctivitis of right eye (ICD-10 - H10.31) Warm compresses, artificial tears. Wash hands frequently February, Contact lens overwea r of both eyes (ICD-10 - H18.823) Wear glasses until infection clears [email or web address] Other 05-02-2023 Evaluation note* Encounter Date Diagnosis Assessment Notes Treatment Notes Treatment Clinical Notes February, Attention deficit hyperactivity disorder (ADHD), predominantly inattentive type (ICD-10 - F90.0) [email or web address] Other 04-25-2023 Evaluation note* Encounter Date Diagnosis [...] - F41.1) Healthy diet, exercise, keep active [email or web address] Other 02-25-2023 Evaluation note* Encounter Date Diagnosis [...] therapy plan may need to be made. [email or web address] Other 02-13-2023 Evaluation note* Encounter Date Diagnosis [...] diet and exercise w/ proper sleep routine [email or web address] Other Evaluation noteNo assessment information available [facility] Work Phone: Evaluation noteNo InformationNort [employer] Other Evaluation note No assessment recorded. [place] [facility]* Diagnosis Onset Date Resolution Status Admit Date ADD (attention deficit disorder) without hyperactivity acute July 01 2:51pm Depression, major, recurrent, mild acute July 01 2:51pm SOURAV (generalized anxiety disorder) acute July 01 2:51pm Migraine with aura and without status migrainosus, not intractable acute July 01 2:51pm Wellness examination noneactive Jun 2:51pm [facility] Work Phone: History general Narrative - Reported* Type Description [...] SURGERY 2013 Hospitalization History SEE SURGICAL HX [email or web address] Other History general Narrative - ReportedNo medical history recorded. Gynecological HistoryNo gynecological history recorded. Obstetrics History GPAL:G 0 P 0 0 0 0 [place] [facility] Reason for referral (narrative)No reason for [facility] Work [facility]: Summary Purpose Family History Relationship Condition Age at Onset Recorded Date/T pamella grandparent Hypertension Unknown grandparent Malignant neoplasm Unknown Advance Directives Advance Directive Response Recorded Date/ Time Advance Directives No February 20 023 10:42am Advance Directive Response Recorded Date/ Time Advance Directives No February 20 023 9:42am Chief Complaint and Reason for Visit Chief Complaint R27.0 R51.9 Chief Complaint R27.0 R51.9 nodule Chief Complaint Admit Date Wellness July 01, 2025 2:51pm Reason for Visit Admit Date ADD (attention deficit disorder) without hyperactivity July 01, 2025 2:51pm Depression, major, recurrent, mild 2024 2:51pm SOURAV (generalized anxiety disorder) 2024 2:51pm Migraine with aura and witho ut status migrainosus, not intractable July 01, 2025 2:51pm Wellness examination July 01, 2025 2:51pm Additional Source Comments INFORMATION SOURCE (unrecogn ized section and content) DATE CREATED AUTHOR 06/04/2022 [facility] DATE CREATED AUTHOR AUTHOR'S ORGANIZ ATION 01/13/2023 [facility] DATE CREATED AUTHOR AUTHOR'S ORGANIZ ATION 09/25/2023 [facility] DATE CREATED AUTHOR AUTHOR'S ORGANIZ ATION 03/16/2024 [facility] EPIC REASON FOR VISIT (unrecogniz ed section and content) [id number], ROSARIO ESTIONMigrainesRefillpink eye and swelled eyepink eye and swelled eyeU/S ResultsrefillRe-Send AdderallLab ResultsmedicationSTD TESTING Care Teams (unrecognized sec tion and content) Team Status: Active Member Role Status Dates July Murcia , POLICY SPECIALIST-C Primary Care Provider Active Team Status: Inactive Member Role Status Dates Dylan Multani DO Attending Provider Active July Campbell Case , POLICY SPECIALIST-C Primary Care Provider Active Team Status: Inactive Member Role Status Dates July Murcia , POLICY SPECIALIST-C Primary Care Provider Active Jordy Case , Attending Provider Active Team Status: Inactive Member Role Status Dates Miriam Mccarty APRN Attending Provider Active Team Status: Active Member Role Status Dates Jordy Case DO Primary Care Provider Active Team Status: Inactive Member Role Status Dates Jordy Case DO Primary Care Provider Active Start: July 01, 2025 End: July 01, 2025 Jordy Case DO Attending Provider Active Sta rt: July 01, 2025 End: July 01, 2025 Goals (unrecognized section and content) Goals may [...] BE BASED ON THE PRIMARY CLINICAL RECORDS. [facility] [facility]. provides no warranty or guarantee of the accuracy or completeness of information in this document.
[2025-07-04 11:23] LABS: Hematocrit 35.7 % (36.0-48.0); Hemoglobin 12.4 g/dL (12.0-16.0); Immature Granulocytes Abs Auto 0.02 10^3/uL (0.00-0.03); Immature Granulocytes Pct Auto 0.4 % (0.0-0.5); Lymphocytes Absolute Auto 1.6 10^3/uL (1.2-3.8); Mean Corpuscular HGB Conc 34.7 g/dL (29.9-35.2); Mean Corpuscular Hemoglobin 32.0 pg (26.7-34.0); Mean Corpuscular Volume 92.0 fL (81.0-99.0); Platelet Count 272 10^3/uL (150-450); Red Blood Count 3.88 10^6/uL (4.20-5.40); White Blood Count 5.1 10^3/uL (4.0-11.0)
[2025-07-04 11:47] LABS: Alanine Aminotransferase 24 U/L (14-59); Albumin Globulin Ratio 1.1; Albumin Level 4.4 g/dL (3.4-5.0); Alkaline Phosphatase 54 U/L (46-116); Anion Gap 14.9; Aspartate Amino Transferase 17 U/L (15-37); Blood Urea Nitrogen 6.0 mg/dL (7.0-18.0); Calcium 9.2 mg/dL (8.5-10.1); Carbon Dioxide 24.2 mmol/L (21.0-32.0); Chloride 104 mmol/L (98-107); Estimated GFR (African America >60 (>=60 mL/min/1.73m^2); Estimated GFR (Non-African Ame >60 (>=60 mL/min/1.73m^2); Globulin 4.1 g/dL; Glucose 88 mg/dL (74-106); Potassium 4.1 mmol/L (3.5-5.1); Sodium 139 mmol/L (136-145); Thyroid Stimulating Hormone 2.019 uIU/mL (0.358-3.740); Total Protein 8.5 g/dL (6.4-8.2)
== END 2025-07-04 10:41 | disposition home or self-care (01) ==
LOC: LAB 10:42
PROVIDERS: PCP Internal Medicine; Visit Provider Internal Medicine
DX: Z00.00 Encounter for general adult medical examination without abnormal findings (principal)
CPT/HCPCS: 36415; 80053; 84443; 85025